=== PATIENT | female | born 1950 | race Asian ===

== ENCOUNTER 2016-08-31 08:48 | Outpatient (CLI) | payer OTHER ==
[2016-08-31] MEDS ORDERED: DIATR MEGLU/DIATRIZ SOD 30 ML SOLUTION PO ONE (09:45)
[2016-08-31 09:57] LABS: BILIRUBIN,URINE NEGATIVE (NEGATIVE); BLOOD, URINE 1+ (NEGATIVE); CLARITY/URINE SL HAZY (CLEAR); COLOR,URINE YELLOW (YELLOW); GLUCOSE,URINE NEGATIVE (NEGATIVE); KETONES,URINE NEGATIVE (NEGATIVE); LEUKOCYTE ESTERASE ,URINE 1+ (NEGATIVE); NITRITE, URINE NEGATIVE (NEGATIVE); PROTEIN URINE NEGATIVE (NEGATIVE); UROBILINOGEN,URINE 0.2 (0.2-1.0)
[2016-08-31 10:00] LABS: HEMATOCRIT 42.6 % (36-48); HEMOGLOBIN 14.4 g/dL (12.0-16.0); MEAN CORPUSCULAR HEMOGLOBIN 32 pg (27-31); MEAN CORPUSCULAR HGB CONC 34 % (32-36); MEAN CORPUSCULAR VOLUME 93 fL (79.0-98.0); PLATELET COUNT (AUTO) 252 K/uL (130-430); RED BLOOD CELL COUNT(AUTO) 4.58 MIL/uL (4.2-6.2); RED CELL DISTRIBUTION WIDTH 11.9 % (9.0-15.0)
[2016-08-31 10:04] LABS: WHITE BLOOD COUNT (AUTO) 3.4 K/uL (4.8-10.8)
[2016-08-31 10:08] LABS: BACTERIA,URINE FEW /HPF (None Seen)
[2016-08-31 10:09] LABS: MUCUS,URINE 1+ /LPF (None Seen)
[2016-08-31 10:10] LABS: INR 0.9 (0.8-1.2)
[2016-08-31 10:11] LABS: ALBUMIN 3.9 g/dL (3.4-4.8); CALCIUM 9.1 mg/dL (8.4-11.0); CREATININE 0.74 mg/dL (0.55-1.30); POTASSIUM 3.8 mmol/L (3.5-5.1); TOTAL BILIRUBIN 0.7 mg/dL (0.0-1.0); TOTAL PROTEIN, SERUM 7.8 g/dL (6.4-8.3)
[2016-08-31 10:23] LABS: ATYPICAL LYMPHOCYTES % 0 % (0-0); BAND % (MANUAL) 0 % (0-6); BASOPHILS % (MANUAL) 0 % (0-2); EOSINOPHILS % (MANUAL) 5 % (0-7); LYMPHOCYTES % (MANUAL) 30 % (20-46); MONOCYTES % (MANUAL) 10 % (0-11)
[2016-08-31] MEDS ORDERED: IOHEXOL 0 ML IV ONE (11:34)
== END 2016-08-31 18:08 | disposition home or self-care (01) ==
LOC: SMA 08:48
PROVIDERS: ATTEND Internal Medicine
DX: Z12.31 Encounter for screening mammogram for malignant neoplasm of breast (principal); Z01.818 Encounter for other preprocedural examination; K80.20 Calculus of gallbladder without cholecystitis without obstruction; E04.9 Nontoxic goiter, unspecified; R10.9 Unspecified abdominal pain; R05 Cough; R22.2 Localized swelling, mass and lump, trunk
CPT/HCPCS: 36415; 71020; 71250; 74176; 77067; 80053; 81000; 85007; 85027; 85610; 85730; 93005; G0202; Q9964; Q9967

== ENCOUNTER 2016-10-09 09:27 | Outpatient (CLI) | payer OTHER | END 2016-10-09 18:58 | disposition home or self-care (01) | LOC: SRD 09:27 | PROVIDERS: ATTEND Internal Medicine | DX: K80.20 Calculus of gallbladder without cholecystitis without obstruction (principal); E04.9 Nontoxic goiter, unspecified; N63 Unspecified lump in breast | CPT/HCPCS: 76536-TC; 76641; 76700-TC ==

== ENCOUNTER 2018-09-14 10:13 | Emergency (ER) | payer BC, OTHER ==
[~2018-09-14] VITALS: Ht 154.9 cm; Wt 68.5 kg
[2018-09-14 10:15] VITALS: BP_SYST 139
--- NOTE | 2018-09-14 10:16 | NUR ---
Patient triaged and placed in waiting room. VSS and patient appears in no acute distress at this time. Accompanied by SON, awaiting available bed, and MD notified of need for MSE.
--- NOTE | 2018-09-14 11:52 | NUR ---
BROUGHT BACK TO BED #4 AND REPORT GIVEN TO EDILBERTO
--- NOTE | 2018-09-14 11:55 | NUR ---
Patient is awake, alert, and oriented x4. States she has had a cough since Wednesday, she went to urgent care on Wednesday and was given z-pack, prednisone, tessalon pearls, and promethazine; no improvement. Patient denies medical history.
--- NOTE | 2018-09-14 12:00 | NUR ---
ER Dr. Nuñez at bedside examining patient.
[2018-09-14] MEDS ORDERED: ALBUTEROL SULFATE 0.083% 2.5 MG/3 ML VIAL.NEB INH ONE (12:15)
[2018-09-14] MEDS ORDERED: PROMETHAZINE 6.25 MG/ CODEINE 10 MG/ 5 ML PO ONE (12:15)
--- NOTE | 2018-09-14 12:38 | NUR ---
Pt given 15mL phenergan with codeine PO, pt tolerated well. No adverse reactions noted. Pt requested tylenol for headache and excuse for work for [address] Nuñez notified.
[2018-09-14] MEDS ORDERED: ACETAMINOPHEN 500 MG TABLET PO ONE (13:15)
[2018-09-14 13:21] VITALS: BP_SYST 134
--- NOTE | 2018-09-14 13:21 | NUR ---
Patient given written and verbal discharge instructions and verbalizes understanding. ER MD discussed with patient the results and treatment provided. Patient in stable condition. ID arm band removed. Rx of albuterol, phenergan w/codeine, tamiflu given. Patient educated on pain management and to follow up with PMD. Pain Scale 5/10, MD is aware. Opportunity for questions provided and answered. Medication side effect fact sheet provided.
== END 2018-09-14 13:21 | disposition home or self-care (01) ==
LOC: SED 10:13
DX: B34.9 Viral infection, unspecified (principal); Z88.1 Allergy status to other antibiotic agents; Z88.6 Allergy status to analgesic agent
CPT/HCPCS: 71046; 94664; 99283; J7613

== ENCOUNTER 2019-06-05 16:33 | Emergency (ER) | payer OTHER ==
[~2019-06-05] VITALS: Ht 149.9 cm; Wt 67.1 kg
[2019-06-05 16:40] VITALS: BP_SYST 140
--- NOTE | 2019-06-05 16:48 | NUR ---
Patient to ER bed H1 to gown for evaluation. Side rails up.
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
--- NOTE | 2019-06-05 17:42 | NUR ---
SCOTT Dowell at bedside examining patient.
[2019-06-05] MEDS ORDERED: IBUPROFEN 600 MG TABLET PO ONE (17:45)
--- NOTE | 2019-06-05 17:52 | NUR ---
Administered Ibuprofen PO as ordered by Dr. Dowell. Patient tolerated the medications well.
--- NOTE | 2019-06-05 18:00 | NUR ---
Patient is taken to radiology via wheelchair in stable condition.
--- NOTE | 2019-06-05 18:10 | NUR ---
Patient is back from Radiology in stable condition.
[2019-06-05 19:10] VITALS: BP_SYST 140
--- NOTE | 2019-06-05 19:10 | NUR ---
Patient given written and verbal discharge instructions and verbalizes understanding. ER MD discussed with patient the results and treatment provided. Patient in stable condition. ID arm band removed. Rx of Ibuprofen given. Patient educated on pain management and to follow up with PMD. Pain Scale 0/10. Opportunity for questions provided and answered. Medication side effect fact sheet provided.
== END 2019-06-05 19:10 | disposition home or self-care (01) ==
LOC: SED 16:33
DX: S20.212A Contusion of left front wall of thorax, initial encounter (principal); Z88.1 Allergy status to other antibiotic agents; Z88.8 Allergy status to other drugs, medicaments and biological substances; V48.6XXA Car passenger injured in noncollision transport accident in traffic accident, initial encounter; W22.12XA Striking against or struck by front passenger side automobile airbag, initial encounter; Y93.89 Activity, other specified; Y92.89 Other specified places as the place of occurrence of the external cause; Y99.8 Other external cause status
CPT/HCPCS: 71045; 99283

== ENCOUNTER 2019-10-26 19:33 | Emergency (ER) | payer BC, OTHER ==
[~2019-10-26] VITALS: Ht 154.9 cm; Wt 68.5 kg
[2019-10-26 19:35] VITALS: BP_SYST 131
[2019-10-26 20:53] LABS: BASOPHILS % (AUTO) 0.3 % (0.0-2.0); EOSINOPHILS # (AUTO) 0.2 K/uL (0.0-0.4); EOSINOPHILS % (AUTO) 4.6 % (0.0-4.0); HEMATOCRIT 40.1 % (36-48); HEMOGLOBIN 13.7 g/dL (12.0-16.0); LYMPHOCYTES # (AUTO) 1.4 K/uL (1.0-5.5); LYMPHOCYTES % (AUTO) 30.5 % (20.5-51.5); MEAN CORPUSCULAR HEMOGLOBIN 33 pg (27-31); MEAN CORPUSCULAR HGB CONC 34 % (32-36); MEAN CORPUSCULAR VOLUME 96 fL (79.0-98.0); MONOCYTES # (AUTO) 0.4 K/uL (0.0-1.0); MONOCYTES % (AUTO) 9.7 % (1.7-9.3); NEUTROPHILS # (AUTO) 2.5 K/uL (1.8-7.7); NEUTROPHILS % (AUTO) 54.9 % (40.0-70.0); PLATELET COUNT (AUTO) 250 K/uL (130-430); RED BLOOD CELL COUNT(AUTO) 4.19 MIL/uL (4.2-6.2); RED CELL DISTRIBUTION WIDTH 12.8 % (9.0-15.0); WHITE BLOOD COUNT (AUTO) 4.5 K/uL (4.8-10.8)
[2019-10-26 21:08] LABS: CALCIUM 8.9 mg/dL (8.4-11.0); CREATININE 0.73 mg/dL (0.55-1.30); POTASSIUM 3.7 mmol/L (3.5-5.1)
[2019-10-26 21:13] LABS: INR 0.9 (0.8-1.2); PROTHROMBIN TIME 8.9 SECS (9.5-12.5)
[2019-10-26 21:14] LABS: ALBUMIN 3.7 g/dL (3.4-4.8); TOTAL BILIRUBIN 0.6 mg/dL (0.0-1.0)
[2019-10-26 21:56] LABS: ERYTHROCYTE SEDIMENTATION RATE 23 MM/HR (0-20)
[2019-10-26] MEDS ORDERED: ACETAMINOPHEN 325 MG TABLET PO ONE (22:00)
[2019-10-26 22:42] VITALS: BP_SYST 122
== END 2019-10-26 22:42 | disposition home or self-care (01) ==
LOC: SED 19:33
DX: R22.43 Localized swelling, mass and lump, lower limb, bilateral (principal); Z88.6 Allergy status to analgesic agent
CPT/HCPCS: 36415; 71045; 80053; 85025; 85379; 85610-TC; 85651-TC; 85730-TC; 93005; 93970; 99285

== ENCOUNTER 2019-11-23 09:26 | Emergency (ER) | payer OTHER, BC, SELFPAY ==
[~2019-11-23] VITALS: Ht 154.9 cm; Wt 69.4 kg
[2019-11-23 09:26] VITALS: BP_SYST 122
[2019-11-23] MEDS ORDERED: ONDANSETRON HCL 4 MG/2 ML VIAL IVP ONE (10:00)
[2019-11-23] MEDS ORDERED: NACL 0.9% 1,000 ML IV ONE (10:00)
[2019-11-23 10:23] LABS: BASOPHILS % (AUTO) 0.2 % (0.0-2.0); HEMATOCRIT 37.4 % (36-48); HEMOGLOBIN 12.9 g/dL (12.0-16.0); LYMPHOCYTES # (AUTO) 0.7 K/uL (1.0-5.5); LYMPHOCYTES % (AUTO) 9.5 % (20.5-51.5); MEAN CORPUSCULAR HEMOGLOBIN 32 pg (27-31); MEAN CORPUSCULAR HGB CONC 35 % (32-36); MEAN CORPUSCULAR VOLUME 93 fL (79.0-98.0); MONOCYTES # (AUTO) 0.4 K/uL (0.0-1.0); NEUTROPHILS # (AUTO) 6.5 K/uL (1.8-7.7); NEUTROPHILS % (AUTO) 85.3 % (40.0-70.0); PLATELET COUNT (AUTO) 284 K/uL (130-430); RED CELL DISTRIBUTION WIDTH 12.9 % (9.0-15.0); WHITE BLOOD COUNT (AUTO) 7.6 K/uL (4.8-10.8)
[2019-11-23 10:51] LABS: PROTHROMBIN TIME 9.9 SECS (9.5-12.5)
[2019-11-23 12:06] LABS: ANION GAP 13 (5-15); CALCIUM 8.2 mg/dL (8.4-11.0); CHLORIDE 98 mmol/L (98-107); CREATININE 0.74 mg/dL (0.55-1.30); GLUCOSE 109 mg/dL (70-99); POTASSIUM 3.2 mmol/L (3.5-5.1); SODIUM SERUM 134 mmol/L (136-145); UREA NITROGEN, BLOOD 12 mg/dL (8-21)
[2019-11-23 12:07] LABS: GFR AFRICAN AMERICAN 101 mL/min (>90)
[2019-11-23 12:17] LABS: ALANINE AMINOTRANSFERASE 45 U/L (12-78); ALBUMIN 2.9 g/dL (3.4-4.8); ASPARTATE AMINOTRANSFERASE < 5 U/L (10-37); LACTATE DEHYDROGENASE 223 U/L (81-234); TOTAL BILIRUBIN 1.1 mg/dL (0.0-1.0)
[2019-11-23] MEDS ORDERED: POTASSIUM CHLORIDE 20 MEQ TAB.PRT.SR PO ONE (12:30)
[2019-11-23] MEDS ORDERED: MAGNESIUM OXIDE 400 MG TABLET PO ONE (12:30)
[2019-11-23 12:31] LABS: BILIRUBIN,URINE 2+ (NEGATIVE); BLOOD, URINE 1+ (NEGATIVE); CLARITY/URINE CLEAR (CLEAR); COLOR,URINE YELLOW (YELLOW); GLUCOSE,URINE NEGATIVE (NEGATIVE); KETONES,URINE TRACE (NEGATIVE); LEUKOCYTE ESTERASE ,URINE NEGATIVE (NEGATIVE); NITRITE, URINE NEGATIVE (NEGATIVE); PH,URINE 6.5 (5.0-8.0); PROTEIN URINE 2+ (NEGATIVE)
[2019-11-23 12:43] LABS: C-REACTIVE PROTEIN QUANT 17.2 mg/dL (0-0.5)
[2019-11-23 12:46] LABS: BACTERIA,URINE MODERATE /HPF (None Seen); MUCUS,URINE 1+ /LPF (None Seen)
[2019-11-23] MEDS ORDERED: guaiFENesin/DEXTROMETHORPHAN 10 ML UDC PO ONE (13:15)
[2019-11-23 14:08] VITALS: BP_SYST 129
== END 2019-11-23 14:08 | disposition home or self-care (01) ==
LOC: SED 09:26
DX: R11.2 Nausea with vomiting, unspecified (principal); R19.7 Diarrhea, unspecified; Z20.828 Contact with and (suspected) exposure to other viral communicable diseases; Z88.1 Allergy status to other antibiotic agents; Z88.6 Allergy status to analgesic agent
CPT/HCPCS: 36415; 36600; 71045; 80053; 81000; 82550; 82728; 82803; 83605; 83615; 83880; 84484; 85025; 85384; 85610; 85730; 86140; 87040; 87086; 93005; 96361; 96374; 99285; J7030; U0003

== ENCOUNTER 2019-12-18 09:20 | Outpatient (CLI) | payer OTHER ==
[2019-12-18 10:24] LABS: BILIRUBIN,URINE 1+ (NEGATIVE); CLARITY/URINE CLEAR (CLEAR); COLOR,URINE YELLOW (YELLOW); GLUCOSE,URINE NEGATIVE (NEGATIVE); KETONES,URINE NEGATIVE (NEGATIVE); LEUKOCYTE ESTERASE ,URINE NEGATIVE (NEGATIVE); NITRITE, URINE NEGATIVE (NEGATIVE); PH,URINE 5.5 (5.0-8.0); PROTEIN URINE NEGATIVE (NEGATIVE); UROBILINOGEN,URINE 0.2 (0.2-1.0)
[2019-12-18 10:25] LABS: BLOOD, URINE TRACE (NEGATIVE)
[2019-12-18 10:29] LABS: BASOPHILS # (AUTO) 0.1 K/uL (0.0-0.2); BASOPHILS % (AUTO) 1.2 % (0.0-2.0); EOSINOPHILS # (AUTO) 0.2 K/uL (0.0-0.4); EOSINOPHILS % (AUTO) 3.1 % (0.0-4.0); HEMATOCRIT 40.9 % (36-48); HEMOGLOBIN 13.5 g/dL (12.0-16.0); LYMPHOCYTES # (AUTO) 1.6 K/uL (1.0-5.5); LYMPHOCYTES % (AUTO) 30.2 % (20.5-51.5); MEAN CORPUSCULAR HEMOGLOBIN 32 pg (27-31); MEAN CORPUSCULAR HGB CONC 33 % (32-36); MEAN CORPUSCULAR VOLUME 98 fL (79.0-98.0); MONOCYTES # (AUTO) 0.6 K/uL (0.0-1.0); MONOCYTES % (AUTO) 11.9 % (1.7-9.3); NEUTROPHILS # (AUTO) 2.8 K/uL (1.8-7.7); NEUTROPHILS % (AUTO) 53.6 % (40.0-70.0); PLATELET COUNT (AUTO) 356 K/uL (130-430); RED BLOOD CELL COUNT(AUTO) 4.18 MIL/uL (4.2-6.2); RED CELL DISTRIBUTION WIDTH 15.7 % (9.0-15.0); WHITE BLOOD COUNT (AUTO) 5.2 K/uL (4.8-10.8)
[2019-12-18 10:37] LABS: BACTERIA,URINE FEW /HPF (None Seen); WBC,URINE 0-3 /HPF (0-3)
[2019-12-18 10:38] LABS: URIC ACID CRYSTALS,URINE 0-10 /HPF (None Seen)
[2019-12-18 10:58] LABS: ALBUMIN 3.8 g/dL (3.4-4.8); CALCIUM 9.2 mg/dL (8.4-11.0); CREATININE 0.72 mg/dL (0.55-1.30); POTASSIUM 4.2 mmol/L (3.5-5.1); THYROID STIMULATING HORMONE 0.88 uIu/mL (0.34-4.82); TOTAL BILIRUBIN 0.8 mg/dL (0.0-1.0)
== END 2019-12-18 20:52 | disposition home or self-care (01) ==
LOC: SLB 09:20
PROVIDERS: ATTEND Internal Medicine
DX: Z00.00 Encounter for general adult medical examination without abnormal findings (principal)
CPT/HCPCS: 36415; 80053; 80061; 81000-TC; 84443-TC; 85025

== ENCOUNTER → 2020-01-05 | Outpatient (CLI) | payer OTHER | END | disposition home or self-care (01) | LOC: SRD 11:12 | PROVIDERS: ATTEND Internal Medicine | DX: M19.011 Primary osteoarthritis, right shoulder (principal) | CPT/HCPCS: 73030 ==

== ENCOUNTER 2020-01-27 13:30 | Outpatient (CLI) | payer OTHER, SELFPAY | END 2020-01-27 20:04 | disposition home or self-care (01) | LOC: SLB 13:30 | PROVIDERS: ATTEND Internal Medicine | DX: Z11.59 Encounter for screening for other viral diseases (principal) | CPT/HCPCS: C9803; U0003 ==

== ENCOUNTER 2020-02-23 10:09 | Outpatient (CLI) | payer OTHER | END 2020-02-24 19:03 | disposition home or self-care (01) | LOC: SMI 10:09 | PROVIDERS: ATTEND Orthopaedic Surgery | DX: M75.101 Unspecified rotator cuff tear or rupture of right shoulder, not specified as traumatic (principal) | CPT/HCPCS: 73221 ==

== ENCOUNTER 2020-03-28 09:58 | Outpatient (CLI) | payer OTHER, BC | END 2020-03-28 20:23 | disposition home or self-care (01) | LOC: SRD 09:58 | PROVIDERS: ATTEND Internal Medicine | DX: R51 Headache (principal) | CPT/HCPCS: 70450-TC ==

== ENCOUNTER 2020-05-02 12:20 | Emergency (ER) | payer OTHER, BC ==
[~2020-05-02] VITALS: Ht 154.9 cm; Wt 68.5 kg
[2020-05-02 12:25] VITALS: BP_SYST 155
--- NOTE | 2020-05-02 12:30 | NUR ---
Patient triaged and placed in waiting room. VSS and patient appears in no acute distress at this time. Accompanied by , awaiting available bed, and MD notified of need for MSE.
--- NOTE | 2020-05-02 12:35 | NUR ---
Patient to ER bed 2 to gown for evaluation. Side rails up. Report given to Shilpa SPARKS.
--- NOTE | 2020-05-02 12:45 | NUR ---
Patient presented to ER C/O hand pain. Patient ambulatory to ER, A&Ox4, skin pink & warm, denies N/V/D, pain 03/14. Patient states she has left hand pain x4 days, left ring finger discoloration, denies hand injury.
--- NOTE | 2020-05-02 12:53 | NUR ---
ER at bedside examining patient.
[2020-05-02 13:30] VITALS: BP_SYST 151
[2020-05-02] MEDS ORDERED: IBUPROFEN 800 MG TABLET PO ONE (13:30)
--- NOTE | 2020-05-02 13:30 | NUR ---
Patient given written and verbal discharge instructions and verbalizes understanding. ER MD discussed with patient the results and treatment provided. Patient in stable condition. ID arm band removed. Rx of motrin given. Patient educated on pain management and to follow up with PMD. Pain Scale 3/10. Opportunity for questions provided and answered. Medication side effect fact sheet provided.
== END 2020-05-02 13:30 | disposition home or self-care (01) ==
LOC: SED 12:20
DX: S60.042A Contusion of left ring finger without damage to nail, initial encounter (principal); Z88.1 Allergy status to other antibiotic agents; Z88.6 Allergy status to analgesic agent; X58.XXXA Exposure to other specified factors, initial encounter; Y93.89 Activity, other specified; Y92.89 Other specified places as the place of occurrence of the external cause; Y99.8 Other external cause status
CPT/HCPCS: 99283

== ENCOUNTER 2020-05-08 12:51 | Outpatient (CLI) | payer OTHER, BC | END 2020-05-08 20:23 | disposition home or self-care (01) | LOC: SRD 12:51 | PROVIDERS: ATTEND Internal Medicine | DX: M19.042 Primary osteoarthritis, left hand (principal) | CPT/HCPCS: 73140-TC ==

== ENCOUNTER 2020-06-17 12:50 | Outpatient (CLI) | payer OTHER | END 2020-06-17 20:47 | disposition home or self-care (01) | LOC: SRD 12:50 | PROVIDERS: ATTEND Internal Medicine | DX: M77.31 Calcaneal spur, right foot (principal); M79.671 Pain in right foot; M89.8X7 Other specified disorders of bone, ankle and foot ==

== ENCOUNTER 2020-12-30 06:54 | Outpatient (CLI) | payer OTHER ==
[2020-12-30 08:10] LABS: ALBUMIN 3.5 g/dL (3.4-4.8); CALCIUM 8.3 mg/dL (8.4-11.0); CREATININE 0.61 mg/dL (0.55-1.30); THYROID STIMULATING HORMONE 1.33 uIu/mL (0.34-4.82); TOTAL BILIRUBIN 0.6 mg/dL (0.0-1.0)
== END 2020-12-30 21:01 | disposition home or self-care (01) ==
LOC: SLB 06:54
PROVIDERS: ATTEND Internal Medicine
DX: J45.909 Unspecified asthma, uncomplicated (principal)
CPT/HCPCS: 36415; 80053; 80061; 84443

== ENCOUNTER 2021-03-26 15:34 | Emergency (ER) | payer OTHER ==
[~2021-03-26] VITALS: Ht 157.5 cm; Wt 67.1 kg
[2021-03-26 15:35] VITALS: BP_SYST 131
--- NOTE | 2021-03-26 15:35 | NUR ---
Patient triaged and placed in waiting room. VSS and patient appears in no acute distress at this time. Accompanied by SPOUSE, awaiting available bed, and MD notified of need for MSE.
--- NOTE | 2021-03-26 16:28 | NUR ---
BROUGHT BACK TO BED #8 AND REPORT GIVEN TO AMBERLY
--- NOTE | 2021-03-26 16:30 | NUR ---
Pt AAO and ambulatory reporting acute onset of N/V today since 0800 today. Pt reports 2 episodes of vomiting and stated that she also has had intermittent N/V for the past 2 days. Pt reports having a bowel movement earlier today that was normal. Pt complains of abdominal pain and rates it 8/10 on pain scale.
--- NOTE | 2021-03-26 17:25 | NUR ---
Dr. Trevizo at bedside to assess.
[2021-03-26] MEDS ORDERED: METOCLOPRAMIDE HCL 10 MG/2 ML VIAL IVP ONE (17:30)
[2021-03-26] MEDS ORDERED: DIPHENHYDRAMINE INJ 50 MG/ML VIAL IVP ONE (17:30)
--- NOTE | 2021-03-26 17:30 | NUR ---
Pt to CT scan via rseminole.
--- NOTE | 2021-03-26 17:38 | NUR ---
Pt back from CT scan.
--- NOTE | 2021-03-26 17:45 | NUR ---
# 22 gauge angiocath placed to left ac. Use of asceptic technique. Opsite placed over site. Blood return noted. Blood for lab drawn from site. Flushed with 10 cc of normal saline. No evidence of infiltration noted. Patient tolerated well.
--- NOTE | 2021-03-26 18:08 | NUR ---
Administrated medications per md order. Unable to scan due to no wifi in bed 8. Verifed medications with second nurse BRIDGER Lou. Pt tolerated medications well.
[2021-03-26 18:11] LABS: BASOPHILS % (AUTO) 0.7 % (0.0-2.0); EOSINOPHILS # (AUTO) 0.2 K/uL (0.0-0.4); EOSINOPHILS % (AUTO) 3.7 % (0.0-4.0); HEMATOCRIT 39.3 % (36-48); HEMOGLOBIN 13.5 g/dL (12.0-16.0); LYMPHOCYTES # (AUTO) 1.3 K/uL (1.0-5.5); LYMPHOCYTES % (AUTO) 28.1 % (20.5-51.5); MEAN CORPUSCULAR HEMOGLOBIN 33 pg (27-31); MEAN CORPUSCULAR HGB CONC 34 % (32-36); MEAN CORPUSCULAR VOLUME 95 fL (79.0-98.0); MONOCYTES # (AUTO) 0.5 K/uL (0.0-1.0); MONOCYTES % (AUTO) 10.3 % (1.7-9.3); NEUTROPHILS # (AUTO) 2.6 K/uL (1.8-7.7); NEUTROPHILS % (AUTO) 57.2 % (40.0-70.0); PLATELET COUNT (AUTO) 238 K/uL (130-430); RED BLOOD CELL COUNT(AUTO) 4.14 MIL/uL (4.2-6.2); RED CELL DISTRIBUTION WIDTH 13.2 % (9.0-15.0); WHITE BLOOD COUNT (AUTO) 4.5 K/uL (4.8-10.8)
[2021-03-26 18:26] LABS: BILIRUBIN,URINE NEGATIVE (NEGATIVE); BLOOD, URINE 2+ (NEGATIVE); COLOR,URINE YELLOW (YELLOW); GLUCOSE,URINE NEGATIVE (NEGATIVE); KETONES,URINE NEGATIVE (NEGATIVE); LEUKOCYTE ESTERASE ,URINE TRACE (NEGATIVE); NITRITE, URINE NEGATIVE (NEGATIVE); PROTEIN URINE NEGATIVE (NEGATIVE); UROBILINOGEN,URINE 0.2 (0.2-1.0)
[2021-03-26 18:33] LABS: CLARITY/URINE SLIGHTLY HAZY (CLEAR)
[2021-03-26 18:39] LABS: ANION GAP 6 (5-15); CHLORIDE 103 mmol/L (98-107); GLUCOSE 92 mg/dL (70-99); SODIUM SERUM 138 mmol/L (136-145)
[2021-03-26 18:40] LABS: ALANINE AMINOTRANSFERASE 38 U/L (12-78); ALBUMIN 3.6 g/dL (3.4-4.8); ASPARTATE AMINOTRANSFERASE 22 U/L (10-37); CALCIUM 8.8 mg/dL (8.4-11.0); CREATININE 0.66 mg/dL (0.55-1.30); GFR AFRICAN AMERICAN 115 mL/min (>90); TOTAL BILIRUBIN 0.3 mg/dL (0.0-1.0); UREA NITROGEN, BLOOD 16 mg/dL (8-21)
[2021-03-26 18:41] LABS: LIPASE 224 U/L (73-393)
--- NOTE | 2021-03-26 19:15 | NUR ---
Pt re-assessed and continues to report abdominal pain and headache. Informed Dr. Trevizo that her pain is currently 8/10 on pain scale. Pt has not vomited since medication was administered.
[2021-03-26 19:16] LABS: BACTERIA,URINE FEW /HPF (None Seen); CALCIUM OXALATE CRYSTALS,UR 0-10 /HPF (None Seen)
[2021-03-26 19:17] LABS: MUCUS,URINE 1+ /LPF (None Seen)
--- NOTE | 2021-03-26 20:20 | NUR ---
Pt to CT scan via wheelchair.
[2021-03-26] MEDS ORDERED: ACETAMINOPHEN 500 MG TABLET ONE (20:23)
[2021-03-26] MEDS ORDERED: ACETAMINOPHEN 500 MG TABLET PO ONE (20:30)
--- NOTE | 2021-03-26 20:30 | NUR ---
Pt back from CT scan.
[2021-03-26] MEDS ORDERED: SULFAMETHOXAZOLE/TRIMETHOPR DS 1 TABLET PO ONE (21:00)
[2021-03-26] MEDS ORDERED: KETOROLAC TROMETHAMINE 30 MG VIAL IVP ONE (21:00)
--- NOTE | 2021-03-26 21:00 | NUR ---
Dr. Trevizo at bedside to re-assess.
[2021-03-26] MEDS ORDERED: PROC10TA13 PO (21:18)
[2021-03-26] MEDS ORDERED: NAPR-688 PO (21:18)
[2021-03-26] MEDS ORDERED: SULF1TAB48 PO (21:18)
[2021-03-26 21:35] VITALS: BP_SYST 130
--- NOTE | 2021-03-26 21:35 | NUR ---
Patient given written and verbal discharge instructions and verbalizes understanding. Dr. Santhosh CHAVEZ MD discussed with patient the results and treatment provided. Patient in stable condition. ID arm band removed. IV catheter removed intact and dressing applied, no active bleeding. Rx per MD. Patient educated on pain management and to follow up with PMD. Pain Scale 0/10. Opportunity for questions provided and answered. Medication side effect fact sheet provided.
== END 2021-03-26 21:35 | disposition home or self-care (01) ==
LOC: SED 15:34
DX: N39.0 Urinary tract infection, site not specified (principal); R10.84 Generalized abdominal pain; R11.2 Nausea with vomiting, unspecified; R51.9 Headache, unspecified; Z88.1 Allergy status to other antibiotic agents; Z88.5 Allergy status to narcotic agent; Z79.899 Other long term (current) drug therapy
CPT/HCPCS: 36415; 70450; 74176; 76376; 80053; 81000; 83690; 84484; 85025; 87086; 93005; 96374; 96375; 99285; J1200; J1885; J2765

== ENCOUNTER 2021-03-31 13:43 | Outpatient (CLI) | payer OTHER ==
[~2021-03-31 13:43] MED LIST: NAPR-688 PO; PROC10TA13 PO; SULF1TAB48 PO
== END 2021-03-31 19:58 | disposition home or self-care (01) ==
LOC: SRD 13:43
PROVIDERS: ATTEND Internal Medicine
DX: R22.2 Localized swelling, mass and lump, trunk (principal)
CPT/HCPCS: 71046-TC

== ENCOUNTER 2021-06-11 11:51 | Emergency (ER) | payer OTHER ==
[~2021-06-11] VITALS: Ht 154.9 cm; Wt 67.1 kg
[2021-06-11 12:23] VITALS: BP_SYST 123
--- NOTE | 2021-06-11 12:27 | NUR ---
PT TRIAGED AND PLACED IN WAITING ROOM FOR AVAILBLE BED IN ER
--- NOTE | 2021-06-11 13:00 | NUR ---
Patient to ER H1 to gown for evaluation. Side rails up. Report given to BRIDGER URBANO.
--- NOTE | 2021-06-11 13:04 | NUR ---
pt. came to be evaluated post a needle stick while working, pt. states was drawing up medication and accidently stuck herself with a clean needle, right middle finger is the affected finger
--- NOTE | 2021-06-11 13:09 | NUR ---
ER at bedside examining patient.
[2021-06-11] MEDS ORDERED: IBUPROFEN 600 MG TABLET PO ONE (13:15)
[2021-06-11] MEDS ORDERED: DIPH-TET-PERTUS Vaccine 0.5 ML VIAL (ADACEL) I.M. ONE (13:30)
--- NOTE | 2021-06-11 13:59 | NUR ---
Patient given written and verbal discharge instructions and verbalizes understanding. Dr. Kelley discussed with patient the results and treatment provided. Patient in stable condition. Patient educated on pain management and instructed to use OTC motrin as needed and to follow up with PMD. Pain Scale 8. Opportunity for questions provided and answered. Medication side effect fact sheet provided.
[2021-06-11 14:01] VITALS: BP_SYST 154
== END 2021-06-11 13:59 | disposition home or self-care (01) ==
LOC: SED 11:51
DX: S61.233A Puncture wound without foreign body of left middle finger without damage to nail, initial encounter (principal); W46.0XXA Contact with hypodermic needle, initial encounter; Y93.89 Activity, other specified; Y92.89 Other specified places as the place of occurrence of the external cause; Y99.8 Other external cause status
CPT/HCPCS: 90715; 99283

== ENCOUNTER 2021-09-22 20:13 | Emergency (ER) | payer OTHER ==
[~2021-09-22] VITALS: Ht 154.9 cm; Wt 68.5 kg
[2021-09-22 20:34] VITALS: BP_SYST 129
--- NOTE | 2021-09-22 20:38 | NUR ---
Patient triaged and placed in waiting room. VS checked and patient appears in no acute distress at this time. Accompanied by , awaiting available bed, and MD notified of need for MSE.
[2021-09-22 20:49] LABS: BILIRUBIN,URINE NEGATIVE (NEGATIVE); BLOOD, URINE 1+ (NEGATIVE); CLARITY/URINE CLEAR (CLEAR); GLUCOSE,URINE NEGATIVE (NEGATIVE); KETONES,URINE NEGATIVE (NEGATIVE); LEUKOCYTE ESTERASE ,URINE 1+ (NEGATIVE); NITRITE, URINE NEGATIVE (NEGATIVE); PH,URINE 5.5 (5.0-8.0); PROTEIN URINE NEGATIVE (NEGATIVE); UROBILINOGEN,URINE 0.2 (0.2-1.0)
[2021-09-22 20:58] LABS: COLOR,URINE STRAW (YELLOW)
[2021-09-22 21:00] LABS: BACTERIA,URINE FEW /HPF (None Seen); MUCUS,URINE 1+ /LPF (None Seen); RBC,URINE 0-3 /HPF (0-3)
[2021-09-22 21:28] LABS: BASOPHILS # (AUTO) 0.1 K/uL (0.0-0.2); BASOPHILS % (AUTO) 1.2 % (0.0-2.0); EOSINOPHILS # (AUTO) 0.2 K/uL (0.0-0.4); EOSINOPHILS % (AUTO) 4.4 % (0.0-4.0); HEMOGLOBIN 13.4 g/dL (12.0-16.0); LYMPHOCYTES # (AUTO) 1.5 K/uL (1.0-5.5); LYMPHOCYTES % (AUTO) 35.3 % (20.5-51.5); MEAN CORPUSCULAR HEMOGLOBIN 31 pg (27-31); MEAN CORPUSCULAR HGB CONC 34 % (32-36); MEAN CORPUSCULAR VOLUME 94 fL (79.0-98.0); MONOCYTES # (AUTO) 0.4 K/uL (0.0-1.0); MONOCYTES % (AUTO) 9.3 % (1.7-9.3); NEUTROPHILS # (AUTO) 2.1 K/uL (1.8-7.7); NEUTROPHILS % (AUTO) 49.8 % (40.0-70.0); PLATELET COUNT (AUTO) 245 K/uL (130-430); RED BLOOD CELL COUNT(AUTO) 4.28 MIL/uL (4.2-6.2); RED CELL DISTRIBUTION WIDTH 13.3 % (9.0-15.0); WHITE BLOOD COUNT (AUTO) 4.3 K/uL (4.8-10.8)
[2021-09-22 21:40] LABS: CALCIUM 9.7 mg/dL (8.4-11.0); CREATININE 0.6 mg/dL (0.55-1.30); POTASSIUM 3.8 mmol/L (3.5-5.1)
[2021-09-22 21:46] LABS: ALBUMIN 3.6 g/dL (3.4-4.8); TOTAL BILIRUBIN 0.2 mg/dL (0.0-1.0)
--- NOTE | 2021-09-22 23:52 | NUR ---
Patient to ER bed 02 to gown for evaluation. Side rails up. Report given to BRIDGER Hodge
--- NOTE | 2021-09-23 | NUR ---
71 YR OLD FEMALE AOX4, AMBULATORY PT WITH COMPLAINT OF RIGHT SIDED FLANK PAIN 7/10 FOR OVER ONE WEEK. PT DENIES ANY TRAUMA, CHEST PAIN OR OTHER COMPLAINTS. PT REPORTS HISTORY OF ASTHMA. PT IS ON [employer] BE[employer] CLEANER, WITH GOWN. AT THE BEDSIDE. MD AT THE BEDSIDE
[2021-09-23] MEDS ORDERED: NACL 0.9% 2,000 ML IV ONE (00:45)
[2021-09-23] MEDS ORDERED: cefTRIAXone 1 GM in D5W 50 ML IV ONE (00:45)
[2021-09-23] MEDS ORDERED: IBUP-1969 PO (00:48)
[2021-09-23] MEDS ORDERED: [UNRECOGNIZED DRUG - CODE] PO (00:48)
[2021-09-23] MEDS ORDERED: cefTRIAXone 1 GM VIAL ONE (01:09)
[2021-09-23] MEDS ORDERED: KETOROLAC TROMETHAMINE 30 MG VIAL IVP ONE (01:15)
--- NOTE | 2021-09-23 01:49 | NUR ---
PT IV SITE INFILTRATED. CATHTER REMOVED. NEW IV SUCCESSFULLY PLACED ON LEFT LOWER FOREARM. PT TOLERATED PROCEDURE WELL. IV FLUIDS RESTARTED WITH ANTIBIOTICS.
--- NOTE | 2021-09-23 02:39 | NUR ---
PT IN BED RESTING EYES OPEN, PT REPORTS FEELING MILD PIAN BUT TOLERABLE. PT IV FLUIDS SLOWED DOWN TO 200 ML/HOUR. MD AWARE. WILL MONITOR NEEDED. REMAINS AT THE BEDSIDE
[2021-09-23 05:36] VITALS: BP_SYST 137
--- NOTE | 2021-09-23 06:00 | NUR ---
PT DISCHARGE WITH HOMECARE INSTRUCTIONS, IV REMOVED WITH CATHETER INTACT GAUZE APPLIED TO SITE. PT ENCOURAGED TO FOLLOW UP WITH RESOURCES REPRESENTATIVE IN 3 TO 5 DAYS. PT DISCHARGED WITH ALL BELONGINGS, IN STABLE CONDITION, AMBULATORY ACCOMPANIED BY SPOUSE. UNDERSTANDING VERBALIZED
== END 2021-09-23 06:04 | disposition home or self-care (01) ==
LOC: SED 20:13
DX: N12 Tubulo-interstitial nephritis, not specified as acute or chronic (principal); Z88.1 Allergy status to other antibiotic agents; Z88.5 Allergy status to narcotic agent; Z88.8 Allergy status to other drugs, medicaments and biological substances; Z79.899 Other long term (current) drug therapy
CPT/HCPCS: 36415; 80053; 81000; 83605; 83690; 85025; 87040; 87086; 96365; 96375; 99284; J0696; J1885

== ENCOUNTER 2021-10-31 11:53 | Emergency (ER) | payer OTHER ==
[~2021-10-31] VITALS: Ht 154.9 cm; Wt 67.1 kg
[~2021-10-31 11:53] MED LIST changes: +IBUP-1969 PO; +[UNRECOGNIZED DRUG - CODE] PO
[2021-10-31 12:15] VITALS: BP_SYST 136
--- NOTE | 2021-10-31 12:15 | NUR ---
Patient to ER bed 6 for evaluation. Side rails up. Report given to Serjio SPARKS.
--- NOTE | 2021-10-31 12:35 | NUR ---
a/ox4 vss, seen and examined by er md, pt seen in hr and housesupervisor is aware.
[2021-10-31] MEDS ORDERED: ACETAMINOPHEN 500 MG TABLET ONE (13:03)
[2021-10-31] MEDS ORDERED: RALT400T PO (13:04)
[2021-10-31] MEDS ORDERED: EMTR1TAB12 PO (13:04)
[2021-10-31] MEDS: ACETAMINOPHEN 500 MG TABLET PO ONE (13:05)
[2021-11-01 06:06] LABS: HEPATITIS A AB, IgM Negative (Negative); HEPATITIS B CORE AB, IgM Negative (Negative); HEPATITIS B SURFACE AG Negative (Negative)
== END 2021-10-31 17:24 | disposition home or self-care (01) ==
LOC: SED 11:53
DX: S61.230A Puncture wound without foreign body of right index finger without damage to nail, initial encounter (principal); Z88.1 Allergy status to other antibiotic agents; Z88.5 Allergy status to narcotic agent; Z79.899 Other long term (current) drug therapy; W45.8XXA Other foreign body or object entering through skin, initial encounter; Y93.89 Activity, other specified; Y92.89 Other specified places as the place of occurrence of the external cause; Y99.8 Other external cause status
CPT/HCPCS: 36415; 80074; 99283

== ENCOUNTER 2021-12-12 02:34 | Emergency (ER) | payer OTHER ==
[~2021-12-12] VITALS: Ht 154.9 cm; Wt 51.7 kg
[~2021-12-12 02:34] MED LIST changes: +EMTR1TAB12 PO; +RALT400T PO
--- NOTE | 2021-12-12 03:00 | NUR ---
ER-MD at bedside
[2021-12-12 03:37] VITALS: BP_SYST 129
--- NOTE | 2021-12-12 03:40 | NUR ---
STATES HER LEFT HIP STARTED HURTING TWO WEEKS AGO WITH UNKNOWN CAUSE AND RADIATES DOWN TO LEFT LOWER EXTREMITY. NO TRAUMA, JUST STARTED HURTING AND STATES BECAME AN EMERGENCY TONIGHT WHEN SHE COULDN'T SLEEP BECAUSE OF THE INCREASE IN PAIN. DID NOT SEE PMD FOR THIS COMPLAINT. PATIENT ABLE TO AMBULATE WITHOUT ISSUE.
[2021-12-12] MEDS ORDERED: predniSONE 20 MG TABLET PO ONE (04:45)
[2021-12-12] MEDS ORDERED: ACETAMINOPHEN/CODEINE 300 MG-30 MG TABLET PO ONE (04:45)
[2021-12-12] MEDS ORDERED: methocarbamoL 500 MG TABLET PO ONE (04:45)
--- NOTE | 2021-12-12 06:00 | NUR ---
Patient given written and verbal discharge instructions and verbalizes understanding. ER MD discussed with patient the results and treatment provided. Patient in stable condition. ID arm band removed. IV catheter removed intact and dressing applied, no active bleeding. Rx of 4 prescription given. Patient educated on pain management and to follow up with PMD. Pain Scale . Opportunity for questions provided and answered. Medication side effect fact sheet provided.
[2021-12-12 06:37] VITALS: BP_SYST 138
== END 2021-12-12 06:00 | disposition home or self-care (01) ==
LOC: SED 02:34
DX: M54.30 Sciatica, unspecified side (principal); M25.552 Pain in left hip; M79.605 Pain in left leg; Z88.1 Allergy status to other antibiotic agents; Z88.2 Allergy status to sulfonamides; Z88.5 Allergy status to narcotic agent; Z79.899 Other long term (current) drug therapy
CPT/HCPCS: 72170; 73502; 99284; J7512

== ENCOUNTER 2021-12-12 07:05 | Outpatient (CLI) | payer OTHER ==
[2021-12-13 07:06] LABS: HEPATITIS B CORE AB, TOTAL Negative (Negative); HEPATITIS B SURFACE AG Negative (Negative); HEPATITIS C VIRUS AB <0.1 s/co ratio (0.0-0.9)
== END 2021-12-12 20:53 | disposition home or self-care (01) ==
LOC: SLB 07:05
PROVIDERS: ATTEND General Practice
DX: T14.90XA Injury, unspecified, initial encounter (principal); W46.0XXA Contact with hypodermic needle, initial encounter; Y93.89 Activity, other specified; Y92.89 Other specified places as the place of occurrence of the external cause; Y99.8 Other external cause status
CPT/HCPCS: 36415; 86704; 86706; 86803; 87340

== ENCOUNTER 2021-12-17 10:24 | Outpatient (CLI) | payer OTHER | END 2021-12-17 19:47 | disposition home or self-care (01) | LOC: SRD 10:24 | PROVIDERS: ATTEND Internal Medicine | DX: M47.26 Other spondylosis with radiculopathy, lumbar region (principal); M51.16 Intervertebral disc disorders with radiculopathy, lumbar region; M51.37 Other intervertebral disc degeneration, lumbosacral region; M46.07 Spinal enthesopathy, lumbosacral region; K63.89 Other specified diseases of intestine | CPT/HCPCS: 72110 ==

== ENCOUNTER 2022-01-06 11:46 | Outpatient (CLI) | payer OTHER | END 2022-01-06 19:08 | disposition home or self-care (01) | LOC: SUS 11:46 | PROVIDERS: ATTEND Specialist | DX: Z12.31 Encounter for screening mammogram for malignant neoplasm of breast (principal); R93.89 Abnormal findings on diagnostic imaging of other specified body structures; D25.9 Leiomyoma of uterus, unspecified | CPT/HCPCS: 76856-TC; 77067 ==

== ENCOUNTER 2022-01-23 09:13 | Outpatient (CLI) | payer OTHER ==
[2022-01-23 10:06] LABS: INR 0.9 (0.8-1.2); PROTHROMBIN TIME 9.1 SECS (9.5-12.5)
[2022-01-23 10:28] LABS: BASOPHILS # (AUTO) 0.1 K/uL (0.0-0.2); BASOPHILS % (AUTO) 1.2 % (0.0-2.0); EOSINOPHILS # (AUTO) 0.4 K/uL (0.0-0.4); EOSINOPHILS % (AUTO) 9.9 % (0.0-4.0); HEMATOCRIT 38.6 % (36-48); HEMOGLOBIN 13.3 g/dL (12.0-16.0); LYMPHOCYTES # (AUTO) 0.9 K/uL (1.0-5.5); LYMPHOCYTES % (AUTO) 22.4 % (20.5-51.5); MEAN CORPUSCULAR HEMOGLOBIN 32 pg (27-31); MEAN CORPUSCULAR HGB CONC 34 % (32-36); MEAN CORPUSCULAR VOLUME 94 fL (79.0-98.0); MONOCYTES # (AUTO) 0.3 K/uL (0.0-1.0); MONOCYTES % (AUTO) 7.2 % (1.7-9.3); NEUTROPHILS # (AUTO) 2.4 K/uL (1.8-7.7); NEUTROPHILS % (AUTO) 59.3 % (40.0-70.0); PLATELET COUNT (AUTO) 270 K/uL (130-430); RED BLOOD CELL COUNT(AUTO) 4.11 MIL/uL (4.2-6.2)
[2022-01-23 11:00] LABS: ALBUMIN 3.7 g/dL (3.4-4.8); CALCIUM 9.2 mg/dL (8.4-11.0); CREATININE 0.55 mg/dL (0.55-1.30); POTASSIUM 4.1 mmol/L (3.5-5.1); TOTAL BILIRUBIN 0.9 mg/dL (0.0-1.0)
== END 2022-01-23 20:36 | disposition home or self-care (01) ==
LOC: SRD 09:13
PROVIDERS: ATTEND Internal Medicine
DX: Z01.818 Encounter for other preprocedural examination (principal); M81.0 Age-related osteoporosis without current pathological fracture; M47.814 Spondylosis without myelopathy or radiculopathy, thoracic region; H26.2 Complicated cataract
CPT/HCPCS: 36415; 71046-TC; 80053; 80061; 85025; 85610-TC; 85730-TC; 93005

== ENCOUNTER 2022-02-03 08:58 | Outpatient (CLI) | payer OTHER | END 2022-02-03 19:14 | disposition home or self-care (01) | LOC: SMI 08:58 | PROVIDERS: ATTEND Orthopaedic Surgery | DX: M19.011 Primary osteoarthritis, right shoulder (principal); M25.811 Other specified joint disorders, right shoulder | CPT/HCPCS: 73221 ==

== ENCOUNTER 2022-03-08 03:20 | Emergency (ER) | payer OTHER ==
[~2022-03-08] VITALS: Ht 154.9 cm; Wt 59.0 kg
[2022-03-08 03:25] VITALS: BP_SYST 142
[2022-03-08] MEDS ORDERED: MORPHINE 4 MG INJ. 4 MG/ML VIAL IM ONE (04:45)
[2022-03-08] MEDS ORDERED: PROCHLORPERAZINE EDISYLATE 10 MG/2 ML VIAL IM ONE (04:45)
[2022-03-08] MEDS ORDERED: MORPHINE 4 MG INJ. 4 MG/ML VIAL ONE (04:50)
[2022-03-08] MEDS ORDERED: HYDR-3917 PO (05:05)
[2022-03-08] MEDS ORDERED: ONDANSETRON 4 MG ODT TAB PO ONE (05:15)
[2022-03-08 06:00] VITALS: BP_SYST 119
== END 2022-03-08 06:00 | disposition home or self-care (01) ==
LOC: SED 03:20
DX: S42.401A Unspecified fracture of lower end of right humerus, initial encounter for closed fracture (principal); Z88.1 Allergy status to other antibiotic agents; Z88.5 Allergy status to narcotic agent; Z88.8 Allergy status to other drugs, medicaments and biological substances; Z79.899 Other long term (current) drug therapy; X58.XXXA Exposure to other specified factors, initial encounter; Y93.89 Activity, other specified; Y92.89 Other specified places as the place of occurrence of the external cause; Y99.8 Other external cause status
CPT/HCPCS: 99284; 29105; 96372; Q0162; J0780; J2270

== ENCOUNTER 2022-03-17 09:18 | Outpatient (CLI) | payer OTHER ==
[~2022-03-17 09:18] MED LIST changes: +HYDR-3917 PO
[2022-03-17 10:27] LABS: BASOPHILS % (AUTO) 1.1 % (0.0-2.0); EOSINOPHILS # (AUTO) 0.2 K/uL (0.0-0.4); EOSINOPHILS % (AUTO) 6.2 % (0.0-4.0); HEMATOCRIT 37.8 % (36-48); LYMPHOCYTES # (AUTO) 0.8 K/uL (1.0-5.5); LYMPHOCYTES % (AUTO) 28.2 % (20.5-51.5); MEAN CORPUSCULAR VOLUME 93 fL (79.0-98.0); MONOCYTES # (AUTO) 0.2 K/uL (0.0-1.0); MONOCYTES % (AUTO) 8.4 % (1.7-9.3); NEUTROPHILS # (AUTO) 1.7 K/uL (1.8-7.7); NEUTROPHILS % (AUTO) 56.1 % (40.0-70.0); PLATELET COUNT (AUTO) 271 K/uL (130-430); RED BLOOD CELL COUNT(AUTO) 4.05 MIL/uL (4.2-6.2); RED CELL DISTRIBUTION WIDTH 12.9 % (9.0-15.0)
[2022-03-17 10:40] LABS: ALBUMIN 3.5 g/dL (3.4-4.8); CALCIUM 8.9 mg/dL (8.4-11.0); CREATININE 0.7 mg/dL (0.55-1.30); TOTAL BILIRUBIN 0.6 mg/dL (0.0-1.0)
[2022-03-17 10:42] LABS: INR 0.9 (0.8-1.2)
[2022-03-17 10:54] LABS: BILIRUBIN,URINE NEGATIVE (NEGATIVE); BLOOD, URINE 1+ (NEGATIVE); CLARITY/URINE CLEAR (CLEAR); COLOR,URINE YELLOW (YELLOW); GLUCOSE,URINE NEGATIVE (NEGATIVE); KETONES,URINE NEGATIVE (NEGATIVE); LEUKOCYTE ESTERASE ,URINE 1+ (NEGATIVE); NITRITE, URINE NEGATIVE (NEGATIVE); PROTEIN URINE NEGATIVE (NEGATIVE); UROBILINOGEN,URINE 0.2 (0.2-1.0)
[2022-03-17 11:17] LABS: BACTERIA,URINE MODERATE /HPF (None Seen); CALCIUM OXALATE CRYSTALS,UR 0-10 /HPF (None Seen)
[2022-03-18 08:06] LABS: HEPATITIS B CORE AB, TOTAL Negative (Negative); HEPATITIS B SURFACE AG Negative (Negative); HEPATITIS C VIRUS AB <0.1 s/co ratio (0.0-0.9)
== END 2022-03-17 19:59 | disposition home or self-care (01) ==
LOC: SLB 09:18
PROVIDERS: ATTEND Internal Medicine
DX: Z01.818 Encounter for other preprocedural examination (principal); D25.9 Leiomyoma of uterus, unspecified
CPT/HCPCS: 36415; 80053; 81000; 83036; 85025; 85610-TC; 85730-TC; 86704; 86706; 86803; 87086; 87340

== ENCOUNTER 2022-03-30 08:45 | Day surgery (SDC) | payer OTHER ==
[2022-03-27 10:00] LABS: BASOPHILS % (AUTO) 1.4 % (0.0-2.0); EOSINOPHILS # (AUTO) 0.2 K/uL (0.0-0.4); HEMATOCRIT 39.1 % (36-48); LYMPHOCYTES # (AUTO) 0.9 K/uL (1.0-5.5); LYMPHOCYTES % (AUTO) 29.7 % (20.5-51.5); MEAN CORPUSCULAR VOLUME 94 fL (79.0-98.0); MONOCYTES # (AUTO) 0.3 K/uL (0.0-1.0); MONOCYTES % (AUTO) 9.8 % (1.7-9.3); NEUTROPHILS # (AUTO) 1.5 K/uL (1.8-7.7); NEUTROPHILS % (AUTO) 51.1 % (40.0-70.0); PLATELET COUNT (AUTO) 274 K/uL (130-430); RED BLOOD CELL COUNT(AUTO) 4.15 MIL/uL (4.2-6.2); RED CELL DISTRIBUTION WIDTH 13.2 % (9.0-15.0)
[2022-03-27 11:22] LABS: HCG,QUAL RESULT NEGATIVE (NEGATIVE)
[2022-03-27 11:31] LABS: BILIRUBIN,URINE NEGATIVE (NEGATIVE); BLOOD, URINE TRACE (NEGATIVE); CLARITY/URINE CLEAR (CLEAR); COLOR,URINE YELLOW (YELLOW); GLUCOSE,URINE NEGATIVE (NEGATIVE); KETONES,URINE NEGATIVE (NEGATIVE); NITRITE, URINE NEGATIVE (NEGATIVE); PROTEIN URINE NEGATIVE (NEGATIVE); UROBILINOGEN,URINE 0.2 (0.2-1.0)
[2022-03-27 14:57] LABS: BACTERIA,URINE FEW /HPF (None Seen); RBC,URINE NONE SEEN /HPF (0-3); WBC,URINE 0-3 /HPF (0-3)
[2022-03-27 14:58] LABS: MUCUS,URINE None Seen /LPF (None Seen)
[2022-03-27 14:59] LABS: LEUKOCYTE ESTERASE ,URINE NEGATIVE (NEGATIVE)
[~2022-03-30] VITALS: Ht 154.9 cm; Wt 60.0 kg
[2022-03-30] MEDS ORDERED: HYDROcodone/ACETAMIN 5-325 MG TAB (NORCO/ VICODIN) PO PRN (15:00)
[2022-03-30] MEDS ORDERED: OXYCODONE/ACETAMINOPHEN 5-325 TABLET PO PRN ×2 (15:00)
[2022-03-30 17:05] VITALS: BP_SYST 130
== END 2022-03-30 17:00 | disposition home or self-care (01) ==
LOC: SDS 08:45 → MERGE 08:45 → SMU 08:46 → SDS 17:00
PROVIDERS: ATTEND Specialist
DX: N85.00 Endometrial hyperplasia, unspecified (principal); J45.909 Unspecified asthma, uncomplicated; Z88.1 Allergy status to other antibiotic agents; Z88.8 Allergy status to other drugs, medicaments and biological substances; Z20.822 Contact with and (suspected) exposure to COVID-19
CPT/HCPCS: 81000; 84703; 85025; 36415 ×2; 58558; 88305; 87426; U0003; J0690; J1100; J1885; J2765; J2250; J2310; J2405; J2704; J3010; J7120; J7030; C1819

== ENCOUNTER 2022-06-10 10:05 | Outpatient (CLI) | payer OTHER ==
[2022-06-10 11:28] LABS: BASOPHILS % (AUTO) 0.7 % (0.0-2.0); EOSINOPHILS # (AUTO) 0.1 K/uL (0.0-0.4); EOSINOPHILS % (AUTO) 3.9 % (0.0-4.0); HEMATOCRIT 39.8 % (36-48); HEMOGLOBIN 13.5 g/dL (12.0-16.0); LYMPHOCYTES # (AUTO) 0.7 K/uL (1.0-5.5); LYMPHOCYTES % (AUTO) 19.1 % (20.5-51.5); MEAN CORPUSCULAR HEMOGLOBIN 33 pg (27-31); MEAN CORPUSCULAR HGB CONC 34 % (32-36); MEAN CORPUSCULAR VOLUME 96 fL (79.0-98.0); MONOCYTES # (AUTO) 0.2 K/uL (0.0-1.0); MONOCYTES % (AUTO) 6.6 % (1.7-9.3); NEUTROPHILS # (AUTO) 2.6 K/uL (1.8-7.7); NEUTROPHILS % (AUTO) 69.7 % (40.0-70.0); PLATELET COUNT (AUTO) 233 K/uL (130-430); RED BLOOD CELL COUNT(AUTO) 4.14 MIL/uL (4.2-6.2); RED CELL DISTRIBUTION WIDTH 13.3 % (9.0-15.0); WHITE BLOOD COUNT (AUTO) 3.7 K/uL (4.8-10.8)
[2022-06-10 11:32] LABS: BILIRUBIN,URINE NEGATIVE (NEGATIVE); BLOOD, URINE 1+ (NEGATIVE); CLARITY/URINE CLEAR (CLEAR); COLOR,URINE YELLOW (YELLOW); GLUCOSE,URINE NEGATIVE (NEGATIVE); KETONES,URINE NEGATIVE (NEGATIVE); LEUKOCYTE ESTERASE ,URINE 1+ (NEGATIVE); NITRITE, URINE NEGATIVE (NEGATIVE); PH,URINE 5.5 (5.0-8.0); PROTEIN URINE NEGATIVE (NEGATIVE); UROBILINOGEN,URINE 0.2 (0.2-1.0)
[2022-06-10 11:54] LABS: ALBUMIN 4.1 g/dL (3.4-4.8); CALCIUM 8.8 mg/dL (8.4-11.0); CREATININE 0.7 mg/dL (0.55-1.30); THYROID STIMULATING HORMONE 1.07 uIu/mL (0.34-4.82); TOTAL BILIRUBIN 0.9 mg/dL (0.0-1.0)
[2022-06-10 11:56] LABS: BACTERIA,URINE None Seen /HPF (None Seen); MUCUS,URINE None Seen /LPF (None Seen); RBC,URINE 0-3 /HPF (0-3)
[2022-06-10 12:06] LABS: URIC ACID 4.6 mg/dL (2.4-7.0)
== END 2022-06-10 20:28 | disposition home or self-care (01) ==
LOC: SLB 10:05
PROVIDERS: ATTEND Internal Medicine
DX: Z00.00 Encounter for general adult medical examination without abnormal findings (principal); Z12.11 Encounter for screening for malignant neoplasm of colon; E05.90 Thyrotoxicosis, unspecified without thyrotoxic crisis or storm; E11.9 Type 2 diabetes mellitus without complications; E55.9 Vitamin D deficiency, unspecified; E78.5 Hyperlipidemia, unspecified; I10 Essential (primary) hypertension; M10.9 Gout, unspecified; N39.0 Urinary tract infection, site not specified; R06.02 Shortness of breath
CPT/HCPCS: 36415; 71045; 80053; 80061; 81000; 82043; 82272; 82306; 82570; 83036; 84443; 84550; 85025

== ENCOUNTER 2022-06-22 08:16 | Outpatient (CLI) | payer OTHER | END 2022-06-22 19:36 | disposition home or self-care (01) | LOC: SCA 08:16 | PROVIDERS: ATTEND Internal Medicine Cardiovascular Disease | DX: R07.9 Chest pain, unspecified (principal) | CPT/HCPCS: 93017 ==

== ENCOUNTER 2022-07-01 17:07 | Emergency (ER) | payer OTHER ==
[~2022-07-01] VITALS: Ht 154.9 cm; Wt 58.1 kg
[2022-07-01 17:20] VITALS: BP_SYST 125
[2022-07-01] MEDS ORDERED: ONDANSETRON HCL 4 MG/2 ML VIAL IVP ONE (18:45)
[2022-07-01] MEDS ORDERED: NACL 0.9% 1,000 ML IV ONE (18:45)
[2022-07-01] MEDS ORDERED: DICYCLOMINE HCL 20 MG/2 ML AMP IM ONE (18:45)
--- NOTE | 2022-07-01 18:49 | NUR ---
BROUGHT BACK TO BED #2 VIA WHEELCHAIR, PLACED IN BED AND REPORT GIVEN TO NEWSPAPER CARRIER
[2022-07-01 19:18] LABS: CALCIUM 8.9 mg/dL (8.4-11.0); CREATININE 0.47 mg/dL (0.55-1.30)
[2022-07-01 19:21] LABS: BASOPHILS % (AUTO) 0.4 % (0.0-2.0); EOSINOPHILS % (AUTO) 0.2 % (0.0-4.0); HEMOGLOBIN 13.6 g/dL (12.0-16.0); LYMPHOCYTES # (AUTO) 0.7 K/uL (1.0-5.5); LYMPHOCYTES % (AUTO) 14.7 % (20.5-51.5); MEAN CORPUSCULAR HEMOGLOBIN 33 pg (27-31); MEAN CORPUSCULAR HGB CONC 34 % (32-36); MEAN CORPUSCULAR VOLUME 96 fL (79.0-98.0); MONOCYTES # (AUTO) 0.2 K/uL (0.0-1.0); MONOCYTES % (AUTO) 3.4 % (1.7-9.3); NEUTROPHILS % (AUTO) 81.3 % (40.0-70.0); PLATELET COUNT (AUTO) 238 K/uL (130-430); RED BLOOD CELL COUNT(AUTO) 4.18 MIL/uL (4.2-6.2); RED CELL DISTRIBUTION WIDTH 13.2 % (9.0-15.0)
[2022-07-01 19:22] LABS: ALBUMIN 3.9 g/dL (3.4-4.8); TOTAL BILIRUBIN 0.7 mg/dL (0.0-1.0)
--- NOTE | 2022-07-01 19:45 | NUR ---
PT FROM HOME WITH C/O OF ABD PAIN ACCOMPANIED BY N/V, THAT STARTED YESTERDAY. PT DENIES HEMATEMSIS, AND URINARY SYMPTOMS. VSS. A&O X 4, AND AMBULATORY. SAFETY PRECAUTIONS IN PLACE AND CONNECTED TO MONITOR.
--- NOTE | 2022-07-01 19:50 | NUR ---
MD AT BEDSIDE WITH PATIENT FOR MSE.
[2022-07-01 21:23] LABS: BILIRUBIN,URINE NEGATIVE (NEGATIVE); CLARITY/URINE CLEAR (CLEAR); COLOR,URINE YELLOW (YELLOW); GLUCOSE,URINE NEGATIVE (NEGATIVE); KETONES,URINE TRACE (NEGATIVE); LEUKOCYTE ESTERASE ,URINE NEGATIVE (NEGATIVE); NITRITE, URINE NEGATIVE (NEGATIVE); PROTEIN URINE NEGATIVE (NEGATIVE); UROBILINOGEN,URINE 0.2 (0.2-1.0)
[2022-07-01 21:27] LABS: BLOOD, URINE TRACE (NEGATIVE)
[2022-07-01 21:39] LABS: BACTERIA,URINE None Seen /HPF (None Seen); WBC,URINE 0-3 /HPF (0-3)
[2022-07-01] MEDS ORDERED: MORPHINE 4 MG INJ. 4 MG/ML VIAL IVP ONE (22:00)
[2022-07-01] MEDS ORDERED: MAG HYDROX/AL HYDROX/SIMETH 30 ML, DICYCLOMINE HCL 20 MG, LIDOCAINE VISCOUS 2% 15ML (PO... PO ONE ×3 (22:00)
[2022-07-01] MEDS ORDERED: ONDA-8 TL (22:14)
[2022-07-01] MEDS ORDERED: DICY10CA13 PO (22:14)
[2022-07-01] MEDS ORDERED: MORPHINE 2 MG/ML INJ. SYRINGE IVP ONE (22:30)
[2022-07-01 23:17] VITALS: BP_SYST 114
--- NOTE | 2022-07-01 23:17 | NUR ---
Patient given written and verbal discharge instructions and verbalizes understanding. ER DR. CABRERA discussed with patient the results and treatment provided. Patient in stable condition. ID arm band removed. IV catheter removed intact and dressing applied, no active bleeding. Rx of BENTLY AND ZOFRAN given. Patient educated on pain management and to follow up with PMD. Pain Scale 0. Opportunity for questions provided and answered. Medication side effect fact sheet provided.
== END 2022-07-01 23:17 | disposition home or self-care (01) ==
LOC: SED 17:07
DX: R10.12 Left upper quadrant pain (principal); R19.7 Diarrhea, unspecified; R11.10 Vomiting, unspecified; J45.909 Unspecified asthma, uncomplicated; Z88.1 Allergy status to other antibiotic agents; Z88.5 Allergy status to narcotic agent; Z88.8 Allergy status to other drugs, medicaments and biological substances; Z79.899 Other long term (current) drug therapy
CPT/HCPCS: 99285; 74176; 96374; 96361; 96375; 80053; 81000; 83690; 85025; 36415; 76376; 96372; J2001; J0500; J2405; J2270; J7030

== ENCOUNTER 2022-09-14 10:56 | Outpatient (CLI) | payer OTHER ==
[~2022-09-14 10:56] MED LIST changes: +ACET325T PO; +D-ME120S20 PO; +DICY10CA13 PO; +NIRM1TAB PO; +ONDA-8 TL
[2022-09-14 12:25] LABS: BILIRUBIN,URINE NEGATIVE (NEGATIVE); BLOOD, URINE 1+ (NEGATIVE); CLARITY/URINE CLEAR (CLEAR); GLUCOSE,URINE NEGATIVE (NEGATIVE); KETONES,URINE NEGATIVE (NEGATIVE); LEUKOCYTE ESTERASE ,URINE 1+ (NEGATIVE); NITRITE, URINE NEGATIVE (NEGATIVE); PROTEIN URINE NEGATIVE (NEGATIVE); UROBILINOGEN,URINE 0.2 (0.2-1.0)
[2022-09-14 12:29] LABS: BASOPHILS % (AUTO) 0.8 % (0.0-2.0); EOSINOPHILS # (AUTO) 0.3 K/uL (0.0-0.4); EOSINOPHILS % (AUTO) 6.3 % (0.0-4.0); HEMATOCRIT 38.6 % (36-48); HEMOGLOBIN 13.3 g/dL (12.0-16.0); LYMPHOCYTES # (AUTO) 0.9 K/uL (1.0-5.5); LYMPHOCYTES % (AUTO) 21.8 % (20.5-51.5); MEAN CORPUSCULAR HEMOGLOBIN 33 pg (27-31); MEAN CORPUSCULAR HGB CONC 34 % (32-36); MEAN CORPUSCULAR VOLUME 97 fL (79.0-98.0); MONOCYTES # (AUTO) 0.3 K/uL (0.0-1.0); MONOCYTES % (AUTO) 7.9 % (1.7-9.3); NEUTROPHILS # (AUTO) 2.7 K/uL (1.8-7.7); NEUTROPHILS % (AUTO) 63.2 % (40.0-70.0); PLATELET COUNT (AUTO) 238 K/uL (130-430); RED CELL DISTRIBUTION WIDTH 13.4 % (9.0-15.0); WHITE BLOOD COUNT (AUTO) 4.2 K/uL (4.8-10.8)
[2022-09-14 12:30] LABS: COLOR,URINE STRAW (YELLOW)
[2022-09-14 12:49] LABS: ALBUMIN 3.7 g/dL (3.4-4.8); CALCIUM 8.6 mg/dL (8.4-11.0); CREATININE 0.67 mg/dL (0.55-1.30); THYROID STIMULATING HORMONE 1.24 uIu/mL (0.34-4.82); TOTAL BILIRUBIN 0.6 mg/dL (0.0-1.0); URIC ACID 5.2 mg/dL (2.4-7.0)
[2022-09-14 12:53] LABS: BACTERIA,URINE RARE /HPF (None Seen)
[2022-09-15 14:06] LABS: HEPATITIS B CORE AB, TOTAL Negative (Negative); HEPATITIS B SURFACE AG Negative (Negative); HEPATITIS C VIRUS AB Non Reactive (Non Reactive)
== END 2022-09-14 20:04 | disposition home or self-care (01) ==
LOC: SLB 10:56
PROVIDERS: ATTEND Internal Medicine
DX: Z00.00 Encounter for general adult medical examination without abnormal findings (principal); T14.90XA Injury, unspecified, initial encounter; E05.90 Thyrotoxicosis, unspecified without thyrotoxic crisis or storm; E11.9 Type 2 diabetes mellitus without complications; E55.9 Vitamin D deficiency, unspecified; E78.5 Hyperlipidemia, unspecified; M10.9 Gout, unspecified; N39.0 Urinary tract infection, site not specified; Z12.11 Encounter for screening for malignant neoplasm of colon; R06.02 Shortness of breath; W46.0XXA Contact with hypodermic needle, initial encounter; Y93.89 Activity, other specified; Y92.89 Other specified places as the place of occurrence of the external cause; Y99.8 Other external cause status
CPT/HCPCS: 36415; 80053; 80061; 81000; 82043; 82306; 82570; 83037; 84443; 84550; 85025; 86704; 86706; 86803; 87340

== ENCOUNTER 2022-09-24 15:46 | Outpatient (CLI) | payer OTHER | END 2022-09-24 20:18 | disposition home or self-care (01) | LOC: SRD 15:46 | PROVIDERS: ATTEND Internal Medicine | DX: Z01.818 Encounter for other preprocedural examination (principal); M25.521 Pain in right elbow; M25.511 Pain in right shoulder; M85.811 Other specified disorders of bone density and structure, right shoulder; J98.4 Other disorders of lung | CPT/HCPCS: 71045; 73030 ==

== ENCOUNTER 2022-10-01 04:50 | Day surgery (SDC) | payer OTHER ==
[2022-09-28 10:14] LABS: BASOPHILS % (AUTO) 0.8 % (0.0-2.0); EOSINOPHILS # (AUTO) 0.4 K/uL (0.0-0.4); EOSINOPHILS % (AUTO) 7.8 % (0.0-4.0); HEMATOCRIT 39.4 % (36-48); HEMOGLOBIN 13.6 g/dL (12.0-16.0); LYMPHOCYTES # (AUTO) 0.8 K/uL (1.0-5.5); LYMPHOCYTES % (AUTO) 16.2 % (20.5-51.5); MEAN CORPUSCULAR HEMOGLOBIN 33 pg (27-31); MEAN CORPUSCULAR HGB CONC 35 % (32-36); MEAN CORPUSCULAR VOLUME 96 fL (79.0-98.0); MONOCYTES # (AUTO) 0.4 K/uL (0.0-1.0); MONOCYTES % (AUTO) 9.1 % (1.7-9.3); NEUTROPHILS # (AUTO) 3.2 K/uL (1.8-7.7); NEUTROPHILS % (AUTO) 66.1 % (40.0-70.0); PLATELET COUNT (AUTO) 230 K/uL (130-430); RED CELL DISTRIBUTION WIDTH 13.1 % (9.0-15.0); WHITE BLOOD COUNT (AUTO) 4.9 K/uL (4.8-10.8)
[2022-09-28 10:20] LABS: BILIRUBIN,URINE NEGATIVE (NEGATIVE); CLARITY/URINE CLEAR (CLEAR); COLOR,URINE YELLOW (YELLOW); GLUCOSE,URINE NEGATIVE (NEGATIVE); KETONES,URINE NEGATIVE (NEGATIVE); LEUKOCYTE ESTERASE ,URINE NEGATIVE (NEGATIVE); NITRITE, URINE NEGATIVE (NEGATIVE); PROTEIN URINE NEGATIVE (NEGATIVE); UROBILINOGEN,URINE 0.2 (0.2-1.0)
[2022-09-28 10:22] LABS: BLOOD, URINE TRACE (NEGATIVE)
[2022-09-28 10:26] LABS: CREATININE 0.58 mg/dL (0.55-1.30)
[2022-09-28 10:29] LABS: INR 0.9 (0.8-1.2); PROTHROMBIN TIME 9.1 SECS (9.5-12.5)
[2022-09-28 10:38] LABS: BACTERIA,URINE None Seen /HPF (None Seen); RBC,URINE 0-3 /HPF (0-3); WBC,URINE NONE SEEN /HPF (0-3)
[2022-10-01] MEDS ORDERED: LR 1,000 ML IV SCH (09:15)
[2022-10-01] MEDS ORDERED: KETOROLAC TROMETHAMINE 30 MG VIAL IVP PRN (09:15)
[2022-10-01] MEDS ORDERED: MEPERIDINE HCL/PF 25 MG/ML DISP.SYRIN IVP PRN (09:15)
[2022-10-01] MEDS ORDERED: ONDANSETRON HCL 4 MG/2 ML VIAL IVP PRN (09:15)
[2022-10-01] MEDS ORDERED: DEXAMETHASONE SOD PHOSPHATE 4 MG/ML VIAL ONE (10:25)
[2022-10-01] MEDS ORDERED: ROCURONIUM BROMIDE 10 MG/ML (ZEMURON) ONE (10:25)
[2022-10-01] MEDS ORDERED: NS IRRIG SOLN 1000 ML IR ONE (10:25)
[2022-10-01] MEDS ORDERED: CEFAZOLIN 2 GM IVPB PREMIX 50 ML IV ONE (10:25)
[2022-10-01] MEDS ORDERED: WATER FOR IRRIGATION,STERILE 1,000 ML IRRIG.SOLN IR ONE (10:25)
[2022-10-01] MEDS ORDERED: SUGAMMADEX SODIUM 200 MG/2 ML VIAL IV ONE (10:25)
[2022-10-01] MEDS ORDERED: EPINEPHrine HCL 1 MG/ML VIAL ONE (10:25)
[2022-10-01] MEDS ORDERED: LABETALOL 100 MG/ 20ML VIAL ONE (10:25)
[2022-10-01] MEDS ORDERED: PROPOFOL 200MG/ 20ML VIAL (DIPRIVAN) IV ONE (10:25)
[2022-10-01] MEDS ORDERED: SEVOFLURANE 15 MIN GAS INH ONE (10:25)
[2022-10-01] MEDS ORDERED: ePHEDrine sulfate 50 MG/ML VIAL ONE (10:25)
[2022-10-01] MEDS ORDERED: NS IRRIG SOLN 5000 ML IR ONE (10:25)
[2022-10-01] MEDS ORDERED: METOCLOPRAMIDE HCL 10 MG/2 ML VIAL ONE (10:25)
[2022-10-01] MEDS ORDERED: LR 1,000 ML IV.SOLN IV ONE (10:25)
[2022-10-01] MEDS ORDERED: fentaNYL CITRATE/PF 100 MCG/2 ML AMP ONE (10:25)
[2022-10-01] MEDS ORDERED: BUPIVACAINE /PF 0.25% 30 ML VIAL INJ ONE (10:25)
[2022-10-01] MEDS ORDERED: MIDAZOLAM HCL 5 MG/ML VIAL (VERSED) IV ONE (10:25)
[2022-10-01] MEDS ORDERED: ONDANSETRON HCL 4 MG/2 ML VIAL ONE ×3 (10:25→14:04)
[2022-10-01] MEDS ORDERED: HYDROmorphone 1 MG/ML INJ. CARTRIDGE ONE (10:53)
[2022-10-01] MEDS: HYDROmorphone 1 MG/ML INJ. CARTRIDGE IVP PRN ×2 (10:55→11:05)
[2022-10-01] MEDS ORDERED: OXYCODONE/ACETAMINOPHEN 5-325 TABLET ONE (14:05)
[2022-10-01 14:36] VITALS: BP_SYST 118
== END 2022-10-01 15:20 | disposition home or self-care (01) ==
LOC: SDS 04:50 → SMU 04:50 → SDS 15:20
PROVIDERS: ATTEND Orthopaedic Surgery Sports Medicine
DX: M75.121 Complete rotator cuff tear or rupture of right shoulder, not specified as traumatic (principal); I10 Essential (primary) hypertension; J45.909 Unspecified asthma, uncomplicated; Z88.1 Allergy status to other antibiotic agents; Z79.82 Long term (current) use of aspirin; Z79.01 Long term (current) use of anticoagulants; Z79.899 Other long term (current) drug therapy; Z20.822 Contact with and (suspected) exposure to COVID-19
CPT/HCPCS: 80048; 81000; 85025; 85610; 85730; 87081; 36415 ×2; 29827; 64415; 87426; J3490 ×3; J0690; J1100; J0171; J2765; J2250; J2405; J2704; J3010; J1170; J7120; L3650; C1713 ×3

== ENCOUNTER 2022-12-03 16:15 | Emergency (ER) | payer OTHER ==
[~2022-12-03] VITALS: Ht 154.9 cm; Wt 61.2 kg
[2022-12-03 16:29] VITALS: BP_SYST 129
[2022-12-03] MEDS ORDERED: HYDROcodone/ACETAMIN 5-325 MG TAB (NORCO/ VICODIN) PO ONE (16:30)
[2022-12-03] MEDS ORDERED: HYDR-3921 PO (17:17)
[2022-12-03] MEDS ORDERED: LIDO1ADH71 TD (17:17)
[2022-12-03] MEDS ORDERED: ONDANSETRON 4 MG ODT TAB PO ONE (17:30)
[2022-12-03 17:35] VITALS: BP_SYST 127
== END 2022-12-03 17:31 | disposition home or self-care (01) ==
LOC: SED 16:15
DX: M25.511 Pain in right shoulder (principal); M25.531 Pain in right wrist; Z88.1 Allergy status to other antibiotic agents; Z88.5 Allergy status to narcotic agent; Z88.6 Allergy status to analgesic agent; Z98.890 Other specified postprocedural states; Z79.899 Other long term (current) drug therapy
CPT/HCPCS: 73030; 99284

== ENCOUNTER 2022-12-09 13:21 | Outpatient (CLI) | payer OTHER ==
[~2022-12-09 13:21] MED LIST changes: +HYDR-3921 PO; +LIDO1ADH71 TD
[2022-12-09 14:45] LABS: ALBUMIN 3.7 g/dL (3.4-4.8); CALCIUM 8.3 mg/dL (8.4-11.0); CREATININE 0.65 mg/dL (0.55-1.30); TOTAL BILIRUBIN 0.4 mg/dL (0.0-1.0)
== END 2022-12-09 20:36 | disposition home or self-care (01) ==
LOC: SLB 13:21
PROVIDERS: ATTEND Internal Medicine Cardiovascular Disease
DX: I10 Essential (primary) hypertension (principal); E78.5 Hyperlipidemia, unspecified
CPT/HCPCS: 36415; 80053; 80061

== ENCOUNTER 2023-02-19 10:09 | Outpatient (CLI) | payer OTHER ==
[2023-02-19 11:22] LABS: BASOPHILS % (AUTO) 0.9 % (0.0-2.0); EOSINOPHILS # (AUTO) 0.2 K/uL (0.0-0.4); HEMATOCRIT 39.8 % (36-48); HEMOGLOBIN 13.2 g/dL (12.0-16.0); LYMPHOCYTES # (AUTO) 1.3 K/uL (1.0-5.5); LYMPHOCYTES % (AUTO) 24.5 % (20.5-51.5); MEAN CORPUSCULAR HEMOGLOBIN 32 pg (27-31); MEAN CORPUSCULAR HGB CONC 33 % (32-36); MEAN CORPUSCULAR VOLUME 95 fL (79.0-98.0); MONOCYTES # (AUTO) 0.4 K/uL (0.0-1.0); NEUTROPHILS # (AUTO) 3.4 K/uL (1.8-7.7); NEUTROPHILS % (AUTO) 63.6 % (40.0-70.0); PLATELET COUNT (AUTO) 216 K/uL (130-430); RED BLOOD CELL COUNT(AUTO) 4.18 MIL/uL (4.2-6.2); WHITE BLOOD COUNT (AUTO) 5.3 K/uL (4.8-10.8)
[2023-02-19 11:48] LABS: ALBUMIN 3.9 g/dL (3.4-4.8); CALCIUM 8.8 mg/dL (8.4-11.0); CREATININE 0.56 mg/dL (0.55-1.30); POTASSIUM 4.4 mmol/L (3.5-5.1); THYROID STIMULATING HORMONE 0.97 uIu/mL (0.36-3.74); TOTAL BILIRUBIN 0.5 mg/dL (0.0-1.0); TOTAL PROTEIN, SERUM 7.5 g/dL (6.4-8.3); URIC ACID 5.8 mg/dL (2.4-7.0)
[2023-02-19] MEDS ORDERED: HYDR-3927 PO (12:22)
[2023-02-19] MEDS ORDERED: HYDR-3917 PO (12:22)
[2023-02-19 13:26] LABS: HEMOGLOBIN A1C 5.07 % (<5.7)
== END 2023-02-19 13:29 | disposition home or self-care (01) ==
LOC: SMI 10:09
PROVIDERS: ATTEND Orthopaedic Surgery Sports Medicine
DX: S46.012A Strain of muscle(s) and tendon(s) of the rotator cuff of left shoulder, initial encounter (principal); S43.432A Superior glenoid labrum lesion of left shoulder, initial encounter; M19.012 Primary osteoarthritis, left shoulder; M75.52 Bursitis of left shoulder; Z00.00 Encounter for general adult medical examination without abnormal findings; Z12.11 Encounter for screening for malignant neoplasm of colon; M10.9 Gout, unspecified; E78.5 Hyperlipidemia, unspecified; D64.9 Anemia, unspecified; E11.9 Type 2 diabetes mellitus without complications; E05.90 Thyrotoxicosis, unspecified without thyrotoxic crisis or storm; E55.9 Vitamin D deficiency, unspecified; I10 Essential (primary) hypertension; N39.0 Urinary tract infection, site not specified; X58.XXXA Exposure to other specified factors, initial encounter; Y93.89 Activity, other specified; Y92.89 Other specified places as the place of occurrence of the external cause; Y99.8 Other external cause status
CPT/HCPCS: 36415; 73221; 80053; 80061; 82306; 83037; 84443; 84550; 85025

== ENCOUNTER 2023-02-19 11:19 | Emergency (ER) | payer OTHER ==
[~2023-02-19] VITALS: Ht 154.9 cm; Wt 59.0 kg
[2023-02-19 11:25] VITALS: BP_SYST 157; PULSE 93; RESP 20; O2SAT 98
[2023-02-19] MEDS ORDERED: HYDR-3917 PO (12:22)
[2023-02-19] MEDS ORDERED: HYDR-3927 PO (12:22)
[2023-02-19 12:40] VITALS: BP_SYST 113; PULSE 68; RESP 18; O2SAT 98
== END 2023-02-19 12:40 | disposition home or self-care (01) ==
LOC: SED 11:19
DX: R07.89 Other chest pain (principal); J45.909 Unspecified asthma, uncomplicated; Z88.1 Allergy status to other antibiotic agents; Z88.5 Allergy status to narcotic agent; Z88.8 Allergy status to other drugs, medicaments and biological substances; Z79.899 Other long term (current) drug therapy
CPT/HCPCS: 36415; 71045; 84484; 93005; 99285

== ENCOUNTER → 2023-02-23 | Outpatient (CLI) | payer OTHER ==
[~2023-02-23] MED LIST changes: +HYDR-3927 PO
== END | disposition home or self-care (01) ==
LOC: SCA 11:58
PROVIDERS: ATTEND Internal Medicine
DX: R07.9 Chest pain, unspecified (principal)
CPT/HCPCS: 93306

== ENCOUNTER 2023-03-05 11:21 | Emergency (ER) | payer OTHER ==
[~2023-03-05] VITALS: Ht 149.9 cm; Wt 54.4 kg
[2023-03-05 11:30] VITALS: BP_SYST 127; PULSE 82; RESP 18; TEMP 97.5; O2SAT 97
[2023-03-05] MEDS ORDERED: KETOROLAC TROMETHAMINE 60 MG/2 ML VIAL IM ONE (11:45)
[2023-03-05] MEDS ORDERED: HYDROcodone/ACETAMIN 7.5-325 MG TAB PO ONE (11:45)
[2023-03-05 12:07] LABS: BILIRUBIN,URINE NEGATIVE (NEGATIVE); CLARITY/URINE Clear (CLEAR); GLUCOSE,URINE NEGATIVE (NEGATIVE); NITRITE, URINE NEGATIVE (NEGATIVE); PROTEIN URINE NEGATIVE (NEGATIVE); UROBILINOGEN,URINE 0.2 (0.2-1.0)
[2023-03-05 12:12] LABS: BLOOD, URINE TRACE (NEGATIVE); COLOR,URINE STRAW (YELLOW); KETONES,URINE NEGATIVE (NEGATIVE); LEUKOCYTE ESTERASE ,URINE NEGATIVE (NEGATIVE)
[2023-03-05 12:19] LABS: BASOPHILS % (AUTO) 0.6 % (0.0-2.0); EOSINOPHILS # (AUTO) 0.2 K/uL (0.0-0.4); HEMATOCRIT 40.5 % (36-48); HEMOGLOBIN 13.5 g/dL (12.0-16.0); LYMPHOCYTES # (AUTO) 1.5 K/uL (1.0-5.5); LYMPHOCYTES % (AUTO) 32.5 % (20.5-51.5); MEAN CORPUSCULAR HEMOGLOBIN 32 pg (27-31); MEAN CORPUSCULAR HGB CONC 33 % (32-36); MEAN CORPUSCULAR VOLUME 95 fL (79.0-98.0); MONOCYTES # (AUTO) 0.4 K/uL (0.0-1.0); MONOCYTES % (AUTO) 9.2 % (1.7-9.3); NEUTROPHILS # (AUTO) 2.5 K/uL (1.8-7.7); NEUTROPHILS % (AUTO) 53.7 % (40.0-70.0); PLATELET COUNT (AUTO) 244 K/uL (130-430); RED BLOOD CELL COUNT(AUTO) 4.28 MIL/uL (4.2-6.2); WHITE BLOOD COUNT (AUTO) 4.6 K/uL (4.8-10.8)
[2023-03-05 12:21] LABS: BACTERIA,URINE None Seen /HPF (None Seen); RBC,URINE 0-3 /HPF (0-3); WBC,URINE NONE SEEN /HPF (0-3)
[2023-03-05 12:29] LABS: ANION GAP 10 (5-15); CALCIUM 9.4 mg/dL (8.4-11.0); CARBON DIOXIDE 29 mmol/L (23-29); CHLORIDE 103 mmol/L (98-107); CREATININE 0.54 mg/dL (0.55-1.30); GLUCOSE 95 mg/dL (74-106); POTASSIUM 4.3 mmol/L (3.5-5.1); SODIUM SERUM 142 mmol/L (136-145); UREA NITROGEN, BLOOD 16 mg/dL (8-21)
[2023-03-05 12:31] LABS: GFR AFRICAN AMERICAN 144 mL/min (>90); GFR NON AFRICAN-AMERICAN 119 mL/min (>90)
[2023-03-05 12:44] LABS: ALANINE AMINOTRANSFERASE 10 U/L (12-78); AMYLASE 88 U/L (0-100); ASPARTATE AMINOTRANSFERASE 10 U/L (10-37); LIPASE 146 U/L (73-393); TOTAL BILIRUBIN 0.6 mg/dL (0.0-1.0); TOTAL PROTEIN, SERUM 7.7 g/dL (6.4-8.3)
[2023-03-05 12:46] LABS: ACETONE, SERUM NEGATIVE (NEGATIVE)
[2023-03-05 12:52] LABS: INR 0.9 (0.8-1.2); PROTHROMBIN TIME 9.6 SECS (9.5-12.5)
[2023-03-05] MEDS ORDERED: IBUP-1969 PO (13:40)
[2023-03-05] MEDS ORDERED: HYDR-3927 PO (13:40)
[2023-03-05 14:07] VITALS: BP_SYST 123; PULSE 88; RESP 16; TEMP 97.9; O2SAT 96
[2023-03-06] MEDS ORDERED: VITD400 PO (05:34)
[2023-03-06] MEDS ORDERED: LIP10 PO (05:35)
[2023-03-06] MEDS ORDERED: COR3.125 PO (05:36)
== END 2023-03-05 14:09 | disposition home or self-care (01) ==
LOC: SED 11:21
DX: K80.50 Calculus of bile duct without cholangitis or cholecystitis without obstruction (principal); R10.9 Unspecified abdominal pain; J45.909 Unspecified asthma, uncomplicated; Z88.1 Allergy status to other antibiotic agents; Z88.5 Allergy status to narcotic agent; Z88.8 Allergy status to other drugs, medicaments and biological substances; Z79.899 Other long term (current) drug therapy
CPT/HCPCS: 99285; 74176; 80053; 81000; 82009; 82150; 83690; 85025; 85610; 85730; 36415; 76376; 96372; 83605; 82397; J1885

== ENCOUNTER 2023-03-06 00:48 | Inpatient (IN) | payer OTHER ==
[~2023-03-06] VITALS: Ht 154.9 cm; Wt 62.6 kg
[2023-03-06 01:05] VITALS: BP_SYST 138; PULSE 86; RESP 19; TEMP 97.9; O2SAT 98
[2023-03-06 02:08] LABS: CALCIUM 9.3 mg/dL (8.4-11.0); CREATININE 0.57 mg/dL (0.55-1.30); POTASSIUM 4.4 mmol/L (3.5-5.1)
[2023-03-06 02:13] LABS: ALBUMIN 3.8 g/dL (3.4-4.8); TOTAL BILIRUBIN 0.6 mg/dL (0.0-1.0); TOTAL PROTEIN, SERUM 7.3 g/dL (6.4-8.3)
[2023-03-06 02:36] LABS: BASOPHILS % (AUTO) 0.9 % (0.0-2.0); EOSINOPHILS # (AUTO) 0.2 K/uL (0.0-0.4); EOSINOPHILS % (AUTO) 4.7 % (0.0-4.0); HEMATOCRIT 37.5 % (36-48); HEMOGLOBIN 12.7 g/dL (12.0-16.0); LYMPHOCYTES # (AUTO) 1.5 K/uL (1.0-5.5); LYMPHOCYTES % (AUTO) 32.4 % (20.5-51.5); MEAN CORPUSCULAR HEMOGLOBIN 32 pg (27-31); MEAN CORPUSCULAR HGB CONC 34 % (32-36); MEAN CORPUSCULAR VOLUME 94 fL (79.0-98.0); MONOCYTES # (AUTO) 0.5 K/uL (0.0-1.0); MONOCYTES % (AUTO) 9.7 % (1.7-9.3); NEUTROPHILS # (AUTO) 2.5 K/uL (1.8-7.7); NEUTROPHILS % (AUTO) 52.3 % (40.0-70.0); PLATELET COUNT (AUTO) 241 K/uL (130-430); RED BLOOD CELL COUNT(AUTO) 3.97 MIL/uL (4.2-6.2); RED CELL DISTRIBUTION WIDTH 13.2 % (9.0-15.0); WHITE BLOOD COUNT (AUTO) 4.7 K/uL (4.8-10.8)
[2023-03-06] MEDS ORDERED: MORPHINE 4 MG INJ. 4 MG/ML VIAL IVP ONE ×2 (03:15→07:00)
[2023-03-06] MEDS ORDERED: KETOROLAC TROMETHAMINE 15 MG VIAL IVP ONE (03:15)
[2023-03-06] MEDS ORDERED: ONDANSETRON HCL 4 MG/2 ML VIAL IVP ONE ×2 (03:15→07:00)
[2023-03-06] MEDS: 0.45% NACL 1,000 ML IV SCH ×3 (05:30→20:32)
[2023-03-06] MEDS ORDERED: VITD400 PO (05:34)
[2023-03-06] MEDS ORDERED: LIP10 PO (05:35)
[2023-03-06] MEDS ORDERED: COR3.125 PO (05:36)
[2023-03-06] MEDS ORDERED: NACL 0.9% 1,000 ML IV ONE (07:00)
[2023-03-06 08:28] VITALS: BP_SYST 142; PULSE 86; RESP 20; TEMP 98.2
[2023-03-06 09:30] VITALS: O2SAT 95
[2023-03-06] MEDS ORDERED: MORPHINE 2 MG/ML INJ. SYRINGE IVP PRN (10:00)
[2023-03-06] MEDS ORDERED: NALOXONE HCL 0.4 MG/ML AMP (NARCAN) IVP PRN (10:00)
[2023-03-06] MEDS ORDERED: PANTOPRAZOLE SODIUM 40 MG/VIAL (PROTONIX) IVP ONE (11:15)
[2023-03-06] MEDS ORDERED: SULFAMETHOXAZOLE/TRIMETHOPR DS 1 TABLET PO ONE (11:15)
[2023-03-06] MEDS: KETOROLAC TROMETHAMINE 30 MG VIAL IVP PRN ×2 (12:08→19:10)
[2023-03-06] MEDS: metroNIDAZOLE 250 mg/NS 50 ML IV SCH ×2 (12:08→20:32)
[2023-03-06 12:30] VITALS: BP_SYST 139; PULSE 69; RESP 20; TEMP 97.3; O2SAT 97
[2023-03-06] MEDS ORDERED: LORazepam 2 MG/ML VIAL IVP PRN (13:45)
[2023-03-06] MEDS ORDERED: CARVEDILOL 3.125 MG TABLET (COREG) PO ONE (14:00)
[2023-03-06] MEDS ORDERED: CHOLECALCIFEROL (VITAMIN D-3) 400 UNIT TABLET PO ONE (14:00)
[2023-03-06] MEDS: ONDANSETRON HCL 4 MG/2 ML VIAL IVP PRN ×2 (14:09→19:11)
[2023-03-06 17:00] VITALS: BP_SYST 120; PULSE 85; RESP 20; TEMP 98.3; O2SAT 96
[2023-03-06 19:50] VITALS: BP_SYST 125; PULSE 94; RESP 20; TEMP 97.9; O2SAT 97
[2023-03-06] MEDS: ATORVASTATIN 10 MG TABLET PO SCH (20:33)
[2023-03-06] MEDS: ACETAMINOPHEN 325 MG TABLET PO PRN (20:33)
[2023-03-06] MEDS: DOCUSATE SODIUM 100 MG CAPSULE PO SCH (20:33)
[2023-03-06] MEDS: SULFAMETHOXAZOLE/TRIMETHOPR DS 1 TABLET PO SCH (20:33)
[2023-03-07 01:41] VITALS: BP_SYST 120; PULSE 79; RESP 18; TEMP 97.2; O2SAT 97
[2023-03-07] MEDS: metroNIDAZOLE 250 mg/NS 50 ML IV SCH ×3 (03:02→20:23)
[2023-03-07] MEDS: ONDANSETRON HCL 4 MG/2 ML VIAL IVP PRN (03:02)
[2023-03-07] MEDS: KETOROLAC TROMETHAMINE 30 MG VIAL IVP PRN ×2 (03:04→12:11)
[2023-03-07] MEDS ORDERED: KETOROLAC TROMETHAMINE 30 MG VIAL IM PRN (05:15)
[2023-03-07 06:08] LABS: BASOPHILS % (AUTO) 0.7 % (0.0-2.0); EOSINOPHILS # (AUTO) 0.2 K/uL (0.0-0.4); HEMATOCRIT 37.6 % (36-48); HEMOGLOBIN 12.4 g/dL (12.0-16.0); LYMPHOCYTES # (AUTO) 1.6 K/uL (1.0-5.5); LYMPHOCYTES % (AUTO) 30.7 % (20.5-51.5); MEAN CORPUSCULAR HEMOGLOBIN 32 pg (27-31); MEAN CORPUSCULAR HGB CONC 33 % (32-36); MEAN CORPUSCULAR VOLUME 96 fL (79.0-98.0); MONOCYTES # (AUTO) 0.5 K/uL (0.0-1.0); MONOCYTES % (AUTO) 9.9 % (1.7-9.3); NEUTROPHILS # (AUTO) 2.9 K/uL (1.8-7.7); NEUTROPHILS % (AUTO) 54.7 % (40.0-70.0); PLATELET COUNT (AUTO) 224 K/uL (130-430); RED BLOOD CELL COUNT(AUTO) 3.94 MIL/uL (4.2-6.2); RED CELL DISTRIBUTION WIDTH 12.8 % (9.0-15.0); WHITE BLOOD COUNT (AUTO) 5.2 K/uL (4.8-10.8)
[2023-03-07 06:14] LABS: PROTHROMBIN TIME 9.9 SECS (9.5-12.5)
[2023-03-07 06:31] LABS: ALBUMIN 3.2 g/dL (3.4-4.8); CALCIUM 8.4 mg/dL (8.4-11.0); CREATININE 0.71 mg/dL (0.55-1.30); POTASSIUM 3.7 mmol/L (3.5-5.1); TOTAL BILIRUBIN 0.6 mg/dL (0.0-1.0); TOTAL PROTEIN, SERUM 6.7 g/dL (6.4-8.3)
[2023-03-07 07:57] VITALS: BP_SYST 132; PULSE 87; RESP 18; TEMP 98.3; O2SAT 95
[2023-03-07 08:00] VITALS: O2SAT 95
[2023-03-07] MEDS: CHOLECALCIFEROL (VITAMIN D-3) 400 UNIT TABLET PO SCH (08:44)
[2023-03-07] MEDS: DOCUSATE SODIUM 100 MG CAPSULE PO SCH ×2 (08:44→20:22)
[2023-03-07] MEDS: SULFAMETHOXAZOLE/TRIMETHOPR DS 1 TABLET PO SCH ×2 (08:44→20:22)
[2023-03-07] MEDS: CARVEDILOL 3.125 MG TABLET (COREG) PO SCH (08:45)
[2023-03-07] MEDS: ACETAMINOPHEN 325 MG TABLET PO PRN (10:21)
[2023-03-07] MEDS: PANTOPRAZOLE SODIUM 40 MG/VIAL (PROTONIX) IVP SCH (10:21)
[2023-03-07] MEDS: 0.45% NACL 1,000 ML IV SCH ×2 (11:30→20:24)
[2023-03-07 13:00] VITALS: BP_SYST 119; PULSE 91; RESP 20; TEMP 98.8; O2SAT 94
[2023-03-07 17:00] VITALS: BP_SYST 151; PULSE 90; RESP 18; TEMP 98.3; O2SAT 97
[2023-03-07 19:30] VITALS: BP_SYST 115; PULSE 91; RESP 18; TEMP 98.4; O2SAT 97
[2023-03-07] MEDS: ATORVASTATIN 10 MG TABLET PO SCH (20:22)
[2023-03-08 00:30] VITALS: BP_SYST 108; PULSE 79; RESP 18; TEMP 97.7; O2SAT 96
[2023-03-08 04:09] LABS: ERYTHROCYTE SEDIMENTATION RATE 13 MM/HR (0-20)
[2023-03-08 04:15] LABS: BASOPHILS % (AUTO) 0.5 % (0.0-2.0); EOSINOPHILS # (AUTO) 0.3 K/uL (0.0-0.4); EOSINOPHILS % (AUTO) 5.1 % (0.0-4.0); HEMATOCRIT 34.5 % (36-48); HEMOGLOBIN 11.4 g/dL (12.0-16.0); LYMPHOCYTES # (AUTO) 1.7 K/uL (1.0-5.5); LYMPHOCYTES % (AUTO) 30.7 % (20.5-51.5); MEAN CORPUSCULAR HEMOGLOBIN 32 pg (27-31); MEAN CORPUSCULAR HGB CONC 33 % (32-36); MEAN CORPUSCULAR VOLUME 95 fL (79.0-98.0); MONOCYTES # (AUTO) 0.5 K/uL (0.0-1.0); MONOCYTES % (AUTO) 8.8 % (1.7-9.3); NEUTROPHILS # (AUTO) 3.1 K/uL (1.8-7.7); NEUTROPHILS % (AUTO) 54.9 % (40.0-70.0); PLATELET COUNT (AUTO) 200 K/uL (130-430); RED BLOOD CELL COUNT(AUTO) 3.61 MIL/uL (4.2-6.2); WHITE BLOOD COUNT (AUTO) 5.7 K/uL (4.8-10.8)
[2023-03-08 04:24] LABS: PROTHROMBIN TIME 9.9 SECS (9.5-12.5)
[2023-03-08] MEDS: metroNIDAZOLE 250 mg/NS 50 ML IV SCH ×3 (04:44→20:52)
[2023-03-08 04:45] LABS: ALBUMIN 2.9 g/dL (3.4-4.8); CREATININE 0.64 mg/dL (0.55-1.30); POTASSIUM 3.7 mmol/L (3.5-5.1); TOTAL BILIRUBIN 0.4 mg/dL (0.0-1.0); TOTAL PROTEIN, SERUM 5.9 g/dL (6.4-8.3)
[2023-03-08 08:00] VITALS: BP_SYST 105; PULSE 79; RESP 14; TEMP 97.2; O2SAT 96
[2023-03-08] MEDS: DOCUSATE SODIUM 100 MG CAPSULE PO SCH ×2 (09:00→20:23)
[2023-03-08] MEDS: CHOLECALCIFEROL (VITAMIN D-3) 400 UNIT TABLET PO SCH (09:00)
[2023-03-08] MEDS: CARVEDILOL 3.125 MG TABLET (COREG) PO SCH (09:00)
[2023-03-08] MEDS: SULFAMETHOXAZOLE/TRIMETHOPR DS 1 TABLET PO SCH ×2 (09:00→20:23)
[2023-03-08] MEDS ORDERED: MEPERIDINE 100 MG INJ. 100 MG/ML VIAL ONE (09:10)
[2023-03-08] MEDS ORDERED: SIMETHICONE 40 MG/0.6 ML ML ONE (09:10)
[2023-03-08] MEDS ORDERED: MIDAZOLAM HCL 5 MG/5 ML VIAL ONE (09:11)
[2023-03-08] MEDS: 0.45% NACL 1,000 ML IV SCH ×3 (09:17→20:26)
[2023-03-08] MEDS: PANTOPRAZOLE SODIUM 40 MG/VIAL (PROTONIX) IVP SCH (09:34)
[2023-03-08 17:30] VITALS: BP_SYST 139; PULSE 72; RESP 19; TEMP 98.1; O2SAT 97
[2023-03-08] MEDS: ACETAMINOPHEN 325 MG TABLET PO PRN (18:23)
[2023-03-08 20:00] VITALS: BP_SYST 150; PULSE 80; RESP 20; TEMP 98.7; O2SAT 98
[2023-03-08] MEDS: ATORVASTATIN 10 MG TABLET PO SCH (20:23)
[2023-03-09 00:19] VITALS: BP_SYST 149; PULSE 80; RESP 18; TEMP 98.3; O2SAT 98
[2023-03-09] MEDS: metroNIDAZOLE 250 mg/NS 50 ML IV SCH ×2 (03:31→13:17)
[2023-03-09 04:47] LABS: BASOPHILS % (AUTO) 0.9 % (0.0-2.0); EOSINOPHILS # (AUTO) 0.3 K/uL (0.0-0.4); EOSINOPHILS % (AUTO) 5.7 % (0.0-4.0); HEMATOCRIT 33.1 % (36-48); LYMPHOCYTES # (AUTO) 1.7 K/uL (1.0-5.5); LYMPHOCYTES % (AUTO) 35.3 % (20.5-51.5); MEAN CORPUSCULAR HEMOGLOBIN 32 pg (27-31); MEAN CORPUSCULAR HGB CONC 33 % (32-36); MEAN CORPUSCULAR VOLUME 95 fL (79.0-98.0); MONOCYTES # (AUTO) 0.4 K/uL (0.0-1.0); MONOCYTES % (AUTO) 9.2 % (1.7-9.3); NEUTROPHILS # (AUTO) 2.3 K/uL (1.8-7.7); NEUTROPHILS % (AUTO) 48.9 % (40.0-70.0); PLATELET COUNT (AUTO) 201 K/uL (130-430); RED BLOOD CELL COUNT(AUTO) 3.49 MIL/uL (4.2-6.2); RED CELL DISTRIBUTION WIDTH 12.9 % (9.0-15.0); WHITE BLOOD COUNT (AUTO) 4.7 K/uL (4.8-10.8)
[2023-03-09 05:04] LABS: CALCIUM 7.9 mg/dL (8.4-11.0); CREATININE 0.55 mg/dL (0.55-1.30); POTASSIUM 3.6 mmol/L (3.5-5.1)
[2023-03-09 05:05] LABS: ALBUMIN 2.8 g/dL (3.4-4.8); TOTAL BILIRUBIN 0.5 mg/dL (0.0-1.0); TOTAL PROTEIN, SERUM 5.8 g/dL (6.4-8.3)
[2023-03-09 08:00] VITALS: O2SAT 97
[2023-03-09] MEDS: CARVEDILOL 3.125 MG TABLET (COREG) PO SCH (09:00)
[2023-03-09] MEDS: DOCUSATE SODIUM 100 MG CAPSULE PO SCH (09:00)
[2023-03-09] MEDS: SULFAMETHOXAZOLE/TRIMETHOPR DS 1 TABLET PO SCH (09:00)
[2023-03-09] MEDS: CHOLECALCIFEROL (VITAMIN D-3) 400 UNIT TABLET PO SCH (09:00)
[2023-03-09] MEDS: PANTOPRAZOLE SODIUM 40 MG/VIAL (PROTONIX) IVP SCH (09:01)
[2023-03-09 11:33] VITALS: BP_SYST 137; PULSE 81; RESP 16; TEMP 97.3; O2SAT 98
[2023-03-09] MEDS ORDERED: PRO40 PO (15:21)
[2023-03-09 16:04] VITALS: BP_SYST 137; PULSE 81; RESP 16; TEMP 97.3; O2SAT 98
== END 2023-03-09 16:45 | disposition home health service (06) | DRG 384 ==
LOC: SED 00:48 → SMU 05:23
PROVIDERS: ADMIT Preventive Medicine Preventive Medicine/Occupational Environmental Medicine; ATTEND Preventive Medicine Preventive Medicine/Occupational Environmental Medicine
PROC: 0DB78ZX Excision of Stomach, Pylorus, Via Natural or Artificial Opening Endoscopic, Diagnostic (ICD-10-PCS; 2023-03-08)
PROC: 0DB58ZX Excision of Esophagus, Via Natural or Artificial Opening Endoscopic, Diagnostic (ICD-10-PCS; principal; 2023-03-08 10:30)
DX: K25.9 Gastric ulcer, unspecified as acute or chronic, without hemorrhage or perforation (principal); E44.0 Moderate protein-calorie malnutrition; D64.9 Anemia, unspecified; D72.819 Decreased white blood cell count, unspecified; E83.52 Hypercalcemia; E88.09 Other disorders of plasma-protein metabolism, not elsewhere classified; J45.909 Unspecified asthma, uncomplicated; Z68.26 Body mass index [BMI] 26.0-26.9, adult; K20.90 Esophagitis, unspecified without bleeding; K80.20 Calculus of gallbladder without cholecystitis without obstruction; Z79.01 Long term (current) use of anticoagulants; Z88.1 Allergy status to other antibiotic agents; Z88.8 Allergy status to other drugs, medicaments and biological substances
CPT/HCPCS: 36415; 43239; 74181; 76705; 78226; 80053; 83690; 84484; 85025; 85610-TC; 85651-TC; 85730-TC; 87081; 88305; 88312; 88313; 93005; 96374; 96375; 99285; A9537; C1751; C9113; J1885; J2175; J2250; J2270; J2405; J3490

== ENCOUNTER 2023-04-12 09:24 | Outpatient (CLI) | payer OTHER ==
[~2023-04-12 09:24] MED LIST changes: -ACET325T PO; +COR3.125 PO; -D-ME120S20 PO; -DICY10CA13 PO; -EMTR1TAB12 PO; -HYDR-3921 PO; -IBUP-1969 PO; -LIDO1ADH71 TD; +LIP10 PO; -NAPR-688 PO; -NIRM1TAB PO; -ONDA-8 TL; +PRO40 PO; -PROC10TA13 PO; -RALT400T PO; -SULF1TAB48 PO; +VITD400 PO; -[UNRECOGNIZED DRUG - CODE] PO
[2023-04-12 10:04] LABS: BARBITURATE, URINE NEGATIVE (NEG <=200); BENZODIAZEPINE, URINE NEGATIVE (NEG <=150); CANNABINOID, URINE NEGATIVE (NEG <=50); COCAINE, URINE NEGATIVE (NEG <=150); METHAMPHETAMINES SCREEN,URINE NEGATIVE (NEG <=500); OPIATE, URINE NEGATIVE (NEG <=100); PHENCYCLIDINE SCREEN,URINE NEGATIVE (NEG <=25); URINE AMPHETAMINE NEGATIVE (NEG <=500); URINE METHADONE NEGATIVE (NEG <=200); URINE OXYCODONE SCREEN NEGATIVE (NEG <=100); URINE PROPOXYPHENE SCREEN NEGATIVE (NEG <=300)
[2023-04-12 10:05] LABS: UR TRICYCLIC ANTIDEPRESSANTS NEGATIVE (NEG <=300)
[2023-04-12 10:14] LABS: ALBUMIN 3.9 g/dL (3.4-4.8); CALCIUM 7.6 mg/dL (8.4-11.0); CREATININE 0.57 mg/dL (0.55-1.30); POTASSIUM 4.1 mmol/L (3.5-5.1); TOTAL BILIRUBIN 0.7 mg/dL (0.0-1.0); TOTAL PROTEIN, SERUM 7.2 g/dL (6.4-8.3)
== END 2023-04-12 20:10 | disposition home or self-care (01) ==
LOC: SLB 09:24
PROVIDERS: ATTEND Internal Medicine
DX: G89.4 Chronic pain syndrome (principal); M75.121 Complete rotator cuff tear or rupture of right shoulder, not specified as traumatic
CPT/HCPCS: 36415; 80053; 80307

== ENCOUNTER 2023-04-13 13:09 | Outpatient (CLI) | payer OTHER | END 2023-04-13 20:14 | disposition home or self-care (01) | LOC: SMI 13:09 | DX: M25.411 Effusion, right shoulder (principal); M13.811 Other specified arthritis, right shoulder; M62.58 Muscle wasting and atrophy, not elsewhere classified, other site; M25.511 Pain in right shoulder; G89.4 Chronic pain syndrome | CPT/HCPCS: 73221 ==

== ENCOUNTER 2023-07-23 17:12 | Outpatient (CLI) | payer OTHER ==
[2023-07-27 06:06] LABS: HEPATITIS B CORE AB, TOTAL Negative (Negative); HEPATITIS B SURFACE AG Negative (Negative); HEPATITIS C VIRUS AB Non Reactive (Non Reactive)
== END 2023-07-23 18:18 | disposition home or self-care (01) ==
LOC: SLB 17:12
PROVIDERS: ATTEND General Practice
DX: T14.90XA Injury, unspecified, initial encounter (principal); W46.0XXA Contact with hypodermic needle, initial encounter; Y93.89 Activity, other specified; Y92.89 Other specified places as the place of occurrence of the external cause; Y99.8 Other external cause status
CPT/HCPCS: 36415; 86704; 86706; 86803; 87340

== ENCOUNTER 2023-10-25 02:19 | Inpatient (IN) | payer OTHER ==
[~2023-10-25] VITALS: Ht 157.5 cm; Wt 62.6 kg
[2023-10-25] VITALS (7 sets, daily range): BP systolic 120–143; PULSE 90–109; RESP 16–18; TEMP 98.1–98.5; O2SAT 93–100
[2023-10-25] MEDS: IPRATROPIUM/ALBUTEROL SULFATE 3 ML AMPUL.NEB (DUONEB) INH ONE ×3 (03:21→12:24)
[2023-10-25 03:23] LABS: LYMPHOCYTES # (AUTO) 1.4 K/uL (1.0-5.5)
[2023-10-25 03:29] LABS: INFLUENZA TYPE A Negative (NEGATIVE); INFLUENZA TYPE B NEGATIVE (NEGATIVE)
[2023-10-25 03:50] LABS: ANION GAP 9 (5-15); CARBON DIOXIDE 27 mmol/L (23-29); CHLORIDE 107 mmol/L (98-107); GLUCOSE 105 mg/dL (74-106); POTASSIUM 3.7 mmol/L (3.5-5.1); SODIUM SERUM 143 mmol/L (136-145); UREA NITROGEN, BLOOD 9 mg/dL (8-21)
[2023-10-25] MEDS: predniSONE 20 MG TABLET PO ONE (03:56)
[2023-10-25] MEDS: HYDROcodone/ACETAMIN 5-325 MG TAB (NORCO/ VICODIN) PO ONE (03:57)
[2023-10-25 04:14] LABS: BASOPHILS % (AUTO) 0.6 % (0.0-2.0); EOSINOPHILS # (AUTO) 0.4 K/uL (0.0-0.4); EOSINOPHILS % (AUTO) 5.6 % (0.0-4.0); HEMATOCRIT 38.2 % (36-48); HEMOGLOBIN 13.1 g/dL (12.0-16.0); MEAN CORPUSCULAR HEMOGLOBIN 32 pg (27-31); MEAN CORPUSCULAR HGB CONC 34 % (32-36); MEAN CORPUSCULAR VOLUME 94 fL (79.0-98.0); MONOCYTES # (AUTO) 0.7 K/uL (0.0-1.0); MONOCYTES % (AUTO) 10.5 % (1.7-9.3); NEUTROPHILS % (AUTO) 62.3 % (40.0-70.0); PLATELET COUNT (AUTO) 226 K/uL (130-430); RED BLOOD CELL COUNT(AUTO) 4.05 MIL/uL (4.2-6.2); RED CELL DISTRIBUTION WIDTH 12.9 % (9.0-15.0); WHITE BLOOD COUNT (AUTO) 6.4 K/uL (4.8-10.8)
[2023-10-25] MEDS ORDERED: cefTRIAXone 1 GM VIAL ONE (04:55)
[2023-10-25] MEDS: cefTRIAXone 1 GM in D5W 50 ML IV ONE (05:01)
[2023-10-25] MEDS ORDERED: ASPI-1155 PO (05:09)
[2023-10-25] MEDS ORDERED: ATOR20TA64 PO (05:09)
[2023-10-25] MEDS ORDERED: URSO300C7 PO (05:09)
[2023-10-25] MEDS ORDERED: CARV3.1246 PO (05:09)
[2023-10-25] MEDS ORDERED: IBAN150T21 PO (05:09)
[2023-10-25] MEDS: DOXYCYCLINE HYCLATE 100 MG in D5W 100 ML IV SCH (09:00)
[2023-10-25] MEDS ORDERED: AZITHROMYCIN 500 MG in NS 250 ML IV SCH (10:00)
[2023-10-25] MEDS: guaiFENesin/DEXTROMETHORPHAN 10 ML UDC PO PRN (13:11)
[2023-10-25 14:51] LABS: ALANINE AMINOTRANSFERASE 36 U/L (12-78); ALBUMIN 3.6 g/dL (3.4-4.8); ANION GAP 11 (5-15); ASPARTATE AMINOTRANSFERASE 21 U/L (10-37); CALCIUM 9.3 mg/dL (8.4-11.0); CARBON DIOXIDE 24 mmol/L (23-29); CHLORIDE 107 mmol/L (98-107); CREATININE 0.77 mg/dL (0.55-1.30); GLUCOSE 157 mg/dL (74-106); POTASSIUM 4.3 mmol/L (3.5-5.1); SODIUM SERUM 142 mmol/L (136-145); TOTAL BILIRUBIN 0.3 mg/dL (0.0-1.0); TOTAL PROTEIN, SERUM 7.8 g/dL (6.4-8.3); UREA NITROGEN, BLOOD 12 mg/dL (8-21)
[2023-10-25 14:53] LABS: PHOSPHORUS 2.9 mg/dL (2.7-4.5)
[2023-10-25] MEDS: IPRATROPIUM/ALBUTEROL SULFATE 3 ML AMPUL.NEB (DUONEB) INH SCH (15:07)
[2023-10-25] MEDS: PANTOPRAZOLE SODIUM 40 MG TAB PO ONE (15:45)
[2023-10-25] MEDS: ATORVASTATIN 10 MG TABLET PO ONE (15:45)
[2023-10-25] MEDS: CARVEDILOL 3.125 MG TABLET (COREG) PO ONE (15:45)
[2023-10-25] MEDS: ASPIRIN 81 MG TAB.CHEW PO ONE (15:45)
[2023-10-25] MEDS: ACETAMINOPHEN 325 MG TABLET PO PRN (15:49)
[2023-10-25 16:09] LABS: EOSINOPHILS % (AUTO) 0.1 % (0.0-4.0); RED CELL DISTRIBUTION WIDTH 12.8 % (9.0-15.0); WHITE BLOOD COUNT (AUTO) 5.6 K/uL (4.8-10.8)
[2023-10-25 16:13] LABS: BASOPHILS % (AUTO) 0.4 % (0.0-2.0); HEMATOCRIT 37.9 % (36-48); HEMOGLOBIN 12.9 g/dL (12.0-16.0); LYMPHOCYTES # (AUTO) 0.8 K/uL (1.0-5.5); LYMPHOCYTES % (AUTO) 13.7 % (20.5-51.5); MEAN CORPUSCULAR HEMOGLOBIN 32 pg (27-31); MEAN CORPUSCULAR HGB CONC 34 % (32-36); MEAN CORPUSCULAR VOLUME 94 fL (79.0-98.0); MONOCYTES # (AUTO) 0.5 K/uL (0.0-1.0); MONOCYTES % (AUTO) 9.6 % (1.7-9.3); NEUTROPHILS # (AUTO) 4.3 K/uL (1.8-7.7); NEUTROPHILS % (AUTO) 76.2 % (40.0-70.0); PLATELET COUNT (AUTO) 235 K/uL (130-430); RED BLOOD CELL COUNT(AUTO) 4.03 MIL/uL (4.2-6.2)
[2023-10-25 16:15] LABS: ERYTHROCYTE SEDIMENTATION RATE 66 MM/HR (0-20)
[2023-10-25] MEDS: DEXAMETHASONE 1 MG TABLET (DECADRON) PO ONE (17:58)
[2023-10-25 18:03] LABS: FREE T4 (FREE THYROXINE) 1.2 ng/dl (0.8-1.5); THYROID STIMULATING HORMONE 3.49 uIu/mL (0.36-3.74)
[2023-10-25] MEDS: CARVEDILOL 3.125 MG TABLET (COREG) PO SCH (20:48)
[2023-10-25] MEDS: DEXAMETHASONE 1 MG TABLET (DECADRON) PO SCH (20:51)
[2023-10-25] MEDS: ursodioL 300 MG CAPSULE PO SCH (21:00)
[2023-10-25] MEDS: BENZOCAINE/MENTHOL 1 EACH LOZENGE PO PRN (21:45)
[2023-10-26] VITALS (8 sets, daily range): BP systolic 115–142; PULSE 89–95; RESP 16–20; TEMP 97.8–98.9; O2SAT 95–98
[2023-10-26] MEDS: IPRATROPIUM/ALBUTEROL SULFATE 3 ML AMPUL.NEB (DUONEB) INH PRN (00:52)
[2023-10-26 07:00] LABS: BASOPHILS % (AUTO) 0.1 % (0.0-2.0); HEMATOCRIT 37.5 % (36-48); LYMPHOCYTES # (AUTO) 0.5 K/uL (1.0-5.5); LYMPHOCYTES % (AUTO) 8.4 % (20.5-51.5); MEAN CORPUSCULAR HEMOGLOBIN 33 pg (27-31); MEAN CORPUSCULAR HGB CONC 35 % (32-36); MEAN CORPUSCULAR VOLUME 95 fL (79.0-98.0); MONOCYTES # (AUTO) 0.2 K/uL (0.0-1.0); NEUTROPHILS # (AUTO) 5.7 K/uL (1.8-7.7); NEUTROPHILS % (AUTO) 88.5 % (40.0-70.0); PLATELET COUNT (AUTO) 243 K/uL (130-430); RED BLOOD CELL COUNT(AUTO) 3.96 MIL/uL (4.2-6.2); RED CELL DISTRIBUTION WIDTH 12.6 % (9.0-15.0); WHITE BLOOD COUNT (AUTO) 6.5 K/uL (4.8-10.8)
[2023-10-26 08:51] LABS: ANION GAP 10 (5-15); CALCIUM 8.8 mg/dL (8.4-11.0); CARBON DIOXIDE 24 mmol/L (23-29); CHLORIDE 107 mmol/L (98-107); GLUCOSE 122 mg/dL (74-106); POTASSIUM 4.4 mmol/L (3.5-5.1); SODIUM SERUM 141 mmol/L (136-145)
[2023-10-26 08:52] LABS: CREATININE 0.63 mg/dL (0.55-1.30); UREA NITROGEN, BLOOD 14 mg/dL (8-21)
[2023-10-26 08:56] LABS: FREE T4 (FREE THYROXINE) 1.1 ng/dL (0.6-1.6); THYROID STIMULATING HORMONE 0.23 uIu/mL (0.34-4.82)
[2023-10-26 09:01] LABS: INR 0.9 (0.8-1.2); PROTHROMBIN TIME < 9.0 SECS (9.5-12.5)
[2023-10-26] MEDS: ASPIRIN 81 MG TAB.CHEW PO SCH (09:41)
[2023-10-26] MEDS: PANTOPRAZOLE SODIUM 40 MG TAB PO SCH (09:41)
[2023-10-26] MEDS: CHOLECALCIFEROL (VITAMIN D-3) 400 UNIT TABLET PO SCH (09:42)
[2023-10-26] MEDS: ATORVASTATIN 10 MG TABLET PO SCH (09:42)
[2023-10-26] MEDS: DOXYCYCLINE HYCLATE 100 MG CAPSULE PO ONE (11:08)
[2023-10-26] MEDS ORDERED: DEC1 PO (12:47)
[2023-10-26] MEDS ORDERED: DOXY100C5 PO (12:47)
[2023-10-26] MEDS ORDERED: IPRA3AMP9 INH (12:47)
[2023-10-26] MEDS ORDERED: D-ME120S28 PO (12:56)
[2023-10-26] MEDS: DOXYCYCLINE HYCLATE 100 MG CAPSULE PO SCH (21:47)
[2023-10-27] VITALS (7 sets, daily range): BP systolic 130–132; PULSE 78–91; RESP 14–19; TEMP 98–98.2; O2SAT 95–99
[2023-10-27 17:30] LABS: CHOLESTEROL 180 mg/dL (<200); HDL CHOLESTEROL 73 mg/dL (>55)
[2023-10-27 17:31] LABS: TRIGLYCERIDES 60 mg/dL (30-150)
== END 2023-10-27 11:45 | disposition home or self-care (01) | DRG 153 ==
LOC: SED 02:19 → SMU 04:53
PROVIDERS: ADMIT Internal Medicine; ATTEND Internal Medicine
DX: J04.2 Acute laryngotracheitis (principal); J45.901 Unspecified asthma with (acute) exacerbation; I10 Essential (primary) hypertension; E78.5 Hyperlipidemia, unspecified; E04.1 Nontoxic single thyroid nodule; Z88.1 Allergy status to other antibiotic agents; Z88.8 Allergy status to other drugs, medicaments and biological substances; Z79.82 Long term (current) use of aspirin
CPT/HCPCS: 36415; 71045; 71250-TC; 76536; 80048; 80053; 80061; 83735; 83880; 84100; 84439; 84443; 84484; 85025; 85610; 85651; 85730; 87040; 94640; 94664; 94760; 99285; J0456; J0696; J3490; J7050; J7060; J7512

== ENCOUNTER 2023-11-03 11:18 | Outpatient (CLI) | payer OTHER ==
[~2023-11-03 11:18] MED LIST changes: +ASPI-1155 PO; +ATOR20TA64 PO; +CARV3.1246 PO; +D-ME120S28 PO; +DEC1 PO; +DOXY100C5 PO; +IBAN150T21 PO; +IPRA3AMP9 INH; +URSO300C7 PO
== END 2023-11-03 18:15 | disposition home or self-care (01) ==
LOC: SUS 11:18
PROVIDERS: ATTEND Internal Medicine
DX: I82.401 Acute embolism and thrombosis of unspecified deep veins of right lower extremity (principal)
CPT/HCPCS: 93971

== ENCOUNTER 2023-12-01 16:29 | Outpatient (CLI) | payer OTHER | END 2023-12-01 18:43 | disposition home or self-care (01) | LOC: SRD 16:29 | PROVIDERS: ATTEND Internal Medicine | DX: M77.31 Calcaneal spur, right foot (principal); M19.071 Primary osteoarthritis, right ankle and foot; M85.871 Other specified disorders of bone density and structure, right ankle and foot ==

== ENCOUNTER 2024-03-13 09:18 | Outpatient (CLI) | payer OTHER ==
[~2024-03-13 09:18] MED LIST changes: +ATOR-449 PO; -LIP10 PO
== END 2024-03-13 20:58 | disposition home or self-care (01) ==
LOC: SMI 09:18
PROVIDERS: ATTEND Internal Medicine
DX: M79.89 Other specified soft tissue disorders (principal)
CPT/HCPCS: 73720